=== PATIENT | female | born 1990 | race Caucasian/White ===

== ENCOUNTER 2022-05-18 08:27 | Emergency (ER) | payer SELFPAY ==
[2022-05-18 08:55] VITALS: BP 112/93; PULSE 82; RESP 20; TEMP 36.7; O2SAT 99; BMI 34.8
--- NOTE | 2022-05-18 09:11 | CRLHL7_ITS ---
For Patients: As a result of the Century Cures Act, medical imaging exams and procedure reports are released immediately into your electronic medical record. You may view this report before your referring provider. If you have questions, please contact your health care provider. INDICATION: SOB TECHNIQUE: Chest 1 view. COMPARISON: None. FINDINGS: Cardiovascular and mediastinum: Heart size and vasculature are normal in caliber and appearance. Mediastinum is within normal limits. Lungs and pleural space: Lungs are clear. No sign of infiltrate or mass. No sign of pleural effusion. No pneumothorax. Bones and soft tissues: No significant findings. IMPRESSION: Unremarkable chest. Dictated by: Saroj Riley MD @ 05/18/2022 10:47:40 (Electronically Signed)
[2022-05-18 09:37] LABS: Strep A DNA Probe* DETECTED (Not Detectd)
[2022-05-18] MEDS: KETOROLAC 30 MG/ML inj IVP (09:38)
[2022-05-18] MEDS: ONDANSETRON 2 MG/ML inj 4 MG IVP (09:38)
[2022-05-18] MEDS: 0.9 % SODIUM CHLORIDE 1000 ml 1,000 ML IV (09:38)
[2022-05-18 09:48] LABS: PCR FLU A Negative PCR FLU A (Negative); PCR FLU B Negative PCR FLU B (Negative); PCR RSV Negative PCR RSV (Negative)
--- NOTE | 2022-05-18 09:48 | ED.GENADULT ---
HPI - General Adult General Chief complaint: Chest Pain Stated complaint: coughing blood, chest pain Time Seen by Provider: 05/18/22 08:45 Source: patient Mode of arrival: ambulatory Limitations: no limitations History of Present Illness HPI narrative: 31-year-old female coming in today complaining of body aches, fevers, vomiting, cough, sore throat going on for 4 days. Patient states that she can not keep anything down. She denies any abdominal pain chest pain. No sick contacts that she is aware of. States that when she coughs it is sometimes productive with blood tinged sputum. Her significant other has influenza a. Related Data Previous Rx's Medication Instructions Recorded amoxicillin 500 mg capsule 500 mg PO BID 10 days #20 caps 05/18/22 Allergies Allergy/AdvReac Type Severity Reaction Status Date / Time shrimp Allergy Severe Anaphylaxis Verified 05/18/22 08:55 Review of Systems Status of ROS: Reports: 10 or more systems reviewed and unremarkable except as noted in History and below [facility] Social History Smoking Status: Never smoker Do you use any of these nicotine containing products: None Second hand tobacco smoke exposure: No How often do you have a drink containing alcohol: never How often do you have six or more drinks on one occasion: Never AUDIT-C Alcohol total score: 0 Non-prescribed substance use: denies use service: No Exam Narrative: Exam Narrative: Well-nourished well-developed patient. Alert and oriented. Patient writhing in pain and crying. Cooperative. Voice sounds normal. HEENT: Normocephalic atraumatic. Pupils are equally round reactive to light. Extraocular muscles are intact. Conjunctivae are moist without any icterus noted. Moist mucous membranes. Posterior pharynx is normal. Neck is soft without any lymphadenopathy or thyromegaly. No masses are appreciated. Cardiovascular: Heart is regular rate and rhythm S1 and S2 are present without any murmurs. Lungs: Clear to auscultation bilaterally no wheezes rhonchi or rales are appreciated. Patient takes deep breaths without any discomfort. Abdomen: Soft and nontender nondistended with normal bowel sounds. No guarding or rebound. No masses or organomegaly appreciated. Extremities: Bilateral lower extremities are without edema. Normal DP and PT pulses. Skin: Well perfused without any obvious rashes. Const: Vital Signs, click to edit/add: Vital Signs - 24 hr 05/18/22 08:55 Temperature 98.1 F Pulse Rate [Pulse Oximeter] 82 Respiratory Rate 20 Blood Pressure [Ri ght Upper Arm] 112/93 H Pulse Oximetry 99 Oxygen Delivery Me thod Room Air Course Course Hospital Course: Patient received normal saline, Zofran and Toradol for her aches, did feel better. Strep pharyngitis came back positive all other swabs including influenza and COVID were negative. Given her symptoms are very classic for influenza a and her significant other has influenza AI wonder if this is a false negative. Her chest x-ray, read by me, was clear. Vital Signs Vital signs: Initial Vital Signs Temperature 98.1 F 05/18/22 08:55 Temperature Source Temporal Artery Scan 05/18/22 08:55 Pulse Rate 82 05/18/22 08:55 Pulse Rhythm 05/18/22 08:55 Respiratory Rate 20 05/18/22 08:55 Blood Pressure 112/93 H 05/18/22 08:55 Blood Pressure Mean 99 05/18/22 08:55 Blood Pressure Position Supine 05/18/22 08:55 Pulse Oximetry 99 05/18/22 08:55 Oxygen Delivery Method 05/18/22 08:55 Vital Signs Temperature 98.1 F 05/18/22 08:55 Pulse Rate 82 05/18/22 08:55 Respiratory Rate 20 05/18/22 08:55 Blood Pressure 112/93 H 05/18/22 08:55 Pulse Oximetry 99 05/18/22 08:55 Oxygen Delivery Method 05/18/22 08:55 Temperature 98.1 F 05/18/22 08:55 Pulse Rate 82 05/18/22 08:55 Respiratory Rate 20 05/18/22 08:55 Blood Pressure 112/93 H 05/18/22 08:55 Pulse Oximetry 99 05/18/22 08:55 Oxygen Delivery Method 05/18/22 08:55 Medical Decision Making [facility] Narrative Medical decision making narrative: 31-year-old female coming in today with symptoms consistent with influenza. Influenza swab was negative however strep swab was positive. Given that she is on day 4 of her symptoms, Tamiflu would not be of too much help. We will go ahead and treat her with amoxicillin. Lab Data Lab results reviewed: Yes I reviewed the patient's lab results Labs: Lab Results 05/18/22 05/18/22 05/18/22 Range/Units 09:05 09:05 09:40 HCG, Qual Negative (Negative) SARS-CoV-2 (PCR) Negative SARS-CoV-2 (Negative) Influenza Type A (PCR) Negative PCR FLU A (Negative) Influenza Type B (PCR) Negative PCR FLU B (Negative) RSV (PCR) Negative PCR RSV (Negative) Group A Strep DNA DETECTED A (Not Detectd) Imaging Data Chest x-ray: Attestation: I have reviewed the pertinent imaging results. Radiologist's impression: Chest 1 view. COMPARISON: None. FINDINGS: Cardiovascular and mediastinum: Heart size and vasculature are normal in caliber and appearance. Mediastinum is within normal limits. Lungs and pleural space: Lungs are clear. No sign of infiltrate or mass. No sign of pleural effusion. No pneumothorax. Bones and soft tissues: No significant findings. IMPRESSION: Unremarkable chest. Discharge Plan Discharge Clinical Impression: Flu-like symptoms, Acute streptococcal pharyngitis Patient Disposition: Home, Self-Care Condition: Stable Additional Instructions: You likely have influenza. Stay well hydrated, use Tylenol or ibuprofen for aches and pains and fevers. You are contagious until you have not had a fever for 24 hours without any medications. Given that your strep test came back positive we will treat with amoxicillin today. Take all antibiotics as prescribed. Prescriptions: New amoxicillin 500 mg capsule 500 mg PO BID 10 Days Qty: 20 0RF Follow Up/Referrals: Provider,Not a Local [Primary Care Provider] - Stand Alone Forms: [employer] Info Instructions
[2022-05-18 09:50] LABS: SARS PCR* Negative SARS-CoV-2 (Negative)
[2022-05-18 10:06] LABS: HCG Qualitative* Negative (Negative)
== END 2022-05-18 11:37 | disposition home or self-care (01) ==
PROVIDERS: Emergency Provider Family Medicine
DX: J02.0 Streptococcal pharyngitis (principal)
CPT/HCPCS: 71045; 84703; 87502; 87634; 87635; 87651; 96374; 96375; 99284; J1885; J2405; J7030

== ENCOUNTER 2023-01-25 11:56 | Emergency (ER) | payer OTHER, SELFPAY ==
[2023-01-25 12:06] VITALS: BP 115/80; PULSE 73; RESP 18; TEMP 36.8; O2SAT 98; BMI 35.7
[2023-01-25 13:16] LABS: Ur HCG Qualitative* Negative (Negative)
--- NOTE | 2023-01-25 13:17 | ED_ITS ---
HPI - General Adult General Chief complaint: Vaginal Bleeding Stated complaint: Vaginal bleeding Time Seen by Provider: 01/25/23 13:13 Source: patient Mode of arrival: ambulatory Limitations: no limitations History of Present Illness HPI narrative: 32-year-old female coming in today complaining of irregular vaginal bleeding. She states that her period was 2 weeks late last month and then she had a 2nd. Two weeks afterwards. She had another. Two weeks after that. Periods are generally light when compared to her normal periods. She denies any abdominal discomfort, shortness of breath or dizziness. She is sexually active and is trying to get . She is not taking any control right now. She was on letrozole and that was stopped about 3 months ago. She states that she has been told she has polycystic ovaries but has never been diagnosed with polycystic ovarian syndrome. Related Data Home Medications Medication Instructions Recorded Confirmed No Known Home Medications 01/25/23 01/25/23 Allergies Allergy/AdvReac Type Severity Reaction Status Date / Time shrimp Allergy Severe Anaphylaxis Verified 01/25/23 12:10 Review of Systems Status of ROS: Reports: 10 or more systems reviewed and unremarkable except as noted in History and below [facility] Social History Smoking Status: Never smoker Do you use any of these nicotine containing products: None Second hand tobacco smoke exposure: No How often do you have a drink containing alcohol: never How often do you have six or more drinks on one occasion: Never AUDIT-C Alcohol total score: 0 Non-prescribed substance use: denies use service: No Exam Narrative: Exam Narrative: Well-nourished well-developed patient in no acute distress. Alert and oriented. Answers questions appropriately. Mood and affect are appropriate. Thoughts are goal oriented and rational. No tangential or magical thinking noted. Patie nt speaks in full sentences without needing to catch their breath. HEENT: Normocephalic atraumatic. Pupils are equally round reactive to light. Extraocular muscles are intact. Conjunctivae are moist without any icterus noted. Moist mucous membranes. Abdomen: Soft and nontender nondistended with normal bowel sounds. Extremities: Bilateral lower extremities are without edema. Skin: Well perfused without any obvious rashes. Const: Vital Signs, click to edit/add: Vital Signs - 24 hr 01/25/23 12:06 Temperature 98.2 F Pulse Rate [Pulse Oximeter] 73 Respiratory Rate 18 Blood Pressure [Ri ght Upper Arm] 115/80 Pulse Oximetry 98 Oxygen Delivery Me thod Room Air Course Course Hospital Course: CBC unremarkable showing very mild anemia with a hemoglobin of 11.7 and the test was negative. Vital Signs Vital signs: Initial Vital Signs Temperature 98.2 F 01/25/23 12:06 Temperature Source Temporal Artery Scan 01/25/23 12:06 Pulse Rate 73 01/25/23 12:06 Respiratory Rate 18 01/25/23 12:06 Blood Pressure 115/80 01/25/23 12:06 Blood Pressure Mean 91 01/25/23 12:06 Blood Pressure Position Sitting 01/25/23 12:06 Pulse Oximetry 98 01/25/23 12:06 Oxygen Delivery Method Room Air 01/25/23 12:06 Vital Signs Temperature 98.2 F 01/25/23 12:06 Pulse Rate 73 01/25/23 12:06 Respiratory Rate 18 01/25/23 12:06 Blood Pressure 115/80 01/25/23 12:06 Pulse Oximetry 98 01/25/23 12:06 Oxygen Delivery Method Room Air 01/25/23 12:06 Temperature 98.2 F 01/25/23 12:06 Pulse Rate 73 01/25/23 12:06 Respiratory Rate 18 01/25/23 12:06 Blood Pressure 115/80 01/25/23 12:06 Pulse Oximetry 98 01/25/23 12:06 Oxygen Delivery Method Room Air 01/25/23 12:06 Medical Decision Making MDM Narrative Medical decision making narrative: 32-year-old female with metrorrhagia. Patient encouraged to follow-up with OBGYN for further management. Lab Data Lab results reviewed: Yes I reviewed the patient's lab results Labs: Lab Results 01/25/23 01/25/23 Range/Units 13:05 13:15 WBC 10.98 (4.50-11.00) K/uL RBC 4.45 (4.00-5.20) m/uL Hgb 11.7 L (12.0-16.0) gm/dL Hct 36.3 (33.0-51.0) % MCV 82 (80-100) fL MCH 26 (26-34) pg MCHC 32 (32-36) gm/dL RDW Coeff of Horacio 13.8 (11.5-15.5) % Plt Count 399 (140-440) K/uL Neut % (Auto) 72.6 H (42.0-72.0) % Lymph % (Auto) 18.9 L (20-44) % [place] % (Auto) 6.4 (0.0-11.0) % Eos % (Auto) 1.7 (0.0-7.0) % Baso % (Auto) 0.3 (0.0-3.0) % Neut # (Auto) 8.00 H (1.7-7.0) K/uL Lymph # (Auto) 2.10 (0.90-2.90) K/uL [place] # (Auto) 0.70 (0.00-0.90) K/UL Eos # (Auto) 0.19 (0.00-0.50) K/uL Baso # (Auto) 0.03 (0.00-0.30) K/uL Abs Immat Gran (auto) 0.01 (0.00-0.30) K/uL Imm/Tot Granulo (auto) 0.1 % Urine HCG, Qual Negative (Negative) Discharge Plan Discharge Clinical Impression: Metrorrhagia Patient Disposition: Home, Self-Care Condition: Stable Additional Instructions: You should follow-up with your OBGYN provider or your primary care provider for further discussions and management of your irregular periods. Prescriptions: No Action No Known Home Medications Follow Up/Referrals: Provider,Not a Local [Primary Care Provider] - Stand Alone Forms: [employer] Info Instructions
[2023-01-25 13:23] LABS: Basophils Absolute Auto 0.03 K/uL (0.00-0.30); Basophils Percent Auto 0.3 % (0.0-3.0); Eosinophils Absolute Auto 0.19 K/uL (0.00-0.50); Eosinophils Percent Auto 1.7 % (0.0-7.0); Hematocrit 36.3 % (33.0-51.0); Hemoglobin* 11.7 gm/dL (12.0-16.0); Immature Granulocytes Abs Auto 0.01 K/uL (0.00-0.30); Immature Granulocytes Pct Auto 0.1 %; Lymphocytes Percent Auto 18.9 % (20-44); Mean Corpuscular HGB Conc 32 gm/dL (32-36); Mean Corpuscular Hemoglobin 26 pg (26-34); Mean Corpuscular Volume 82 fL (80-100); Monocytes Percent Auto 6.4 % (0.0-11.0); Neutrophils Percent Auto 72.6 % (42.0-72.0); Platelet Count* 399 K/uL (140-440); RDW Coefficient of Variation % 13.8 % (11.5-15.5); Red Blood Count 4.45 m/uL (4.00-5.20); White Blood Count* 10.98 K/uL (4.50-11.00)
[2023-01-25 13:25] LABS: Slide Review Reflex No
== END 2023-01-25 13:46 | disposition home or self-care (01) ==
LOC: ED 13:30
PROVIDERS: Emergency Provider Family Medicine
DX: N92.1 Excessive and frequent menstruation with irregular cycle (principal)
CPT/HCPCS: 36415; 81025; 85025; 99283; 99284

== ENCOUNTER 2023-02-27 08:08 | Emergency (ER) | payer OTHER, SELFPAY ==
[2023-02-27 08:14] VITALS: BP 96/77; PULSE 99; RESP 18; TEMP 36.1; O2SAT 98; BMI 32.9
--- NOTE | 2023-02-27 08:33 | CRLHL7_ITS ---
For Patients: As a result of the Century Cures Act, medical imaging exams and procedure reports are released immediately into your electronic medical record. You may view this report before your referring provider. If you have questions, please contact your health care provider. Indication: Shortness of breath Technique: Chest 1 view Comparison: Chest x-ray 05/18/2022 Findings/Impression: Cardiovascular and mediastinum: Heart size and vasculature are normal in caliber and appearance. Lungs and pleural space: Lungs are clear. No sign of infiltrate or mass. No sign of pleural effusion. No pneumothorax. Bones and soft tissues: No acute findings. Dictated by Mack Crowe MD @ 02/27/2023 8:56:53 AM (Electronically Signed)
--- NOTE | 2023-02-27 08:36 | ED_ITS ---
HPI - General Adult General Date Seen: 02/27/23 Chief complaint: Cough Stated complaint: headaches,night sweats,vomiting,cough Time Seen by Provider: 02/27/23 08:10 Source: patient Mode of arrival: ambulatory Limitations: no limitations History of Present Illness HPI narrative: Patient is a 32-year-old here saying she has not felt well for the past couple of days. She has had a cough, she has had some post-tussive emesis with some streaks of blood, she has had night sweats and presumes that she has had a fever because of the night sweats. She has felt wheezy and sometimes short of breath, no chest pain. No ill contacts. She says she was diagnosed with asthma in [place] but has never had an inhaler. Related Data Previous Rx's Medication Instructions Recorded albuterol sulfate 90 mcg/actuation 2 puff inhalation 6XD PRN 02/27/23 aerosol inhaler shortness of breath or wheezing #6.7 grams Allergies Allergy/AdvReac Type Severity Reaction Status Date / Time shrimp Allergy Severe Anaphylaxis Verified 01/25/23 12:10 Review of Systems Status of ROS: Reports: 6 or more systems reviewed and unremarkable except as noted in History and below [facility] Social History Smoking Status: Never smoker Do you use any of these nicotine containing products: None Second hand tobacco smoke exposure: No How often do you have a drink containing alcohol: never How often do you have six or more drinks on one occasion: Never AUDIT-C Alcohol total score: 0 Non-prescribed substance use: denies use service: No Exam Narrative: Exam Narrative: Vital signs as noted above. In general, an alert, well-appearing patient. Head: Normocephalic, atraumatic. Eyes: Pupils are equal reactive. Extraocular movements are full. Conjunctivae are normal. ENT: Mucous membranes are moist. Tonsils are normal, no exudate or edema. She does have a few streaks of blood noted in the back of her throat. Neck: Supple without lymphadenopathy. Heart: Regular rate and rhythm. No murmur or rub. Lungs: No wheezes but she does have a few crackles in bilateral upper lungs. No increased work of breathing. Abdomen: Soft and nontender. No organomegaly. Extremities: Well perfused. No edema. No calf tenderness. Pulses intact. Neurologic: Patient is alert and oriented to person and place. Speech is fluent. Face is symmetric. Moves all extremities equally. Affect: Normal. Skin: Warm and dry. Well perfused. Const: Vital Signs, click to edit/add: Vital Signs - 24 hr 02/27/23 08:14 Temperature 96.9 F L Pulse Rate [Pulse Oximeter] 99 Respiratory Rate 18 Blood Pressure [Ri ght Forearm] 96/77 Pulse Oximetry 98 Oxygen Delivery Me thod Room Air Course Course ED Course: I did a chest x-ray here which by my review is negative, final radiology read is negative. Labs show hemoglobin of 11.5, white count is normal at 6.3 with a neutrophil count of 35%, increased lymphocyte % of 47%. Metabolic panel unremarkable. CRP minimally elevated at 1.6. COVID is positive. Reviewed with her that I think the blood streaks are likely due to a Jennifer-Garza tear, also could be due to some bleeding in the nasal passages are back of the throat. I am not overly concerned about that. Overall, symptoms I think are due to COVID, she is not showing any signs of significant respiratory difficulty. I think she can be treated symptomatically. I am going to give her an inhaler since she feels she does have a history of some reactive airways. She can use this as needed. Return for worsening respiratory symptoms. Reviewed that for right now O2 sats are normal. Vital Signs Vital signs: Initial Vital Signs Temperature 96.9 F L 02/27/23 08:14 Temperature Source Temporal Artery Scan 02/27/23 08:14 Pulse Rate 99 02/27/23 08:14 Respiratory Rate 18 02/27/23 08:14 Blood Pressure 96/77 02/27/23 08:14 Blood Pressure Mean 83 02/27/23 08:14 Blood Pressure Position Sitting 02/27/23 08:14 Pulse Oximetry 98 02/27/23 08:14 Oxygen Delivery Method Room Air 02/27/23 08:14 Vital Signs Temperature 96.9 F L 02/27/23 08:14 Pulse Rate 99 02/27/23 08:14 Respiratory Rate 18 02/27/23 08:14 Blood Pressure 96/77 02/27/23 08:14 Pulse Oximetry 98 02/27/23 08:14 Oxygen Delivery Method Room Air 02/27/23 08:14 Temperature 96.9 F L 02/27/23 08:14 Pulse Rate 99 02/27/23 08:14 Respiratory Rate 18 02/27/23 08:14 Blood Pressure 96/77 02/27/23 08:14 Pulse Oximetry 98 02/27/23 08:14 Oxygen Delivery Method Room Air 02/27/23 08:14 Medical Decision Making Lab Data Labs: Lab Results 02/27/23 02/27/23 Range/Units 08:24 08:50 WBC 6.30 (4.50-11.00) K/uL RBC 4.39 (4.00-5.20) m/uL Hgb 11.5 L (12.0-16.0) gm/dL Hct 35.4 (33.0-51.0) % MCV 81 (80-100) fL MCH 26 (26-34) pg MCHC 33 (32-36) gm/dL RDW Coeff of Horacio 14.3 (11.5-15.5) % Plt Count 352 (140-440) K/uL Neut % (Auto) 35.3 L (42.0-72.0) % Lymph % (Auto) 47.0 H (20-44) % Bartholomew % (Auto) 13.7 H (0.0-11.0) % Eos % (Auto) 3.2 (0.0-7.0) % Baso % (Auto) 0.6 (0.0-3.0) % Neut # (Auto) 2.20 (1.7-7.0) K/uL Lymph # (Auto) 3.00 H (0.90-2.90) K/uL Bartholomew # (Auto) 0.90 (0.00-0.90) K/UL Eos # (Auto) 0.20 (0.00-0.50) K/uL Baso # (Auto) 0.04 (0.00-0.30) K/uL Abs Immat Gran (auto) 0.01 (0.00-0.30) K/uL Imm/Tot Granulo (auto) 0.2 % Sodium 139 (135-149) mmol/L Potassium 3.4 L (3.6-5.1) mmol/L Chloride 106 (96-114) mmol/L Carbon Dioxide 23 (20-32) mmol/L Anion Gap 10 (7-15) mEq/L BUN 15 (5-24) mg/dL Creatinine 0.6 (0.5-1.5) mg/dL Estimated Creat Clear 107.45 Estimated GFR 123 ml/min Glucose 100 (60-115) mg/dL Calcium 9.4 (8.4-10.6) mg/dL C-Reactive Protein 1.6 H (0.5-1.0) mg/dL SARS-CoV-2 (PCR) POSITIVE SARS-CoV-2 A (Negative) Influenza Type A (PCR) Negative PCR FLU A (Negative) Influenza Type B (PCR) Negative PCR FLU B (Negative) RSV (PCR) Negative PCR RSV (Negative) Discharge Plan Discharge Clinical Impression: COVID-19 Patient Disposition: Home, Self-Care Condition: Stable Instructions: COVID-19 (Coronavirus Disease 2019) (ED) Additional Instructions: Ibuprofen or Tylenol as needed. I do not hear any wheezing today, but I will prescribe an inhaler in case you feel like you need it. Symptoms will likely take 7-10 days to fully improve. If you feel like your breathing is worsening significantly, return to the emergency department. You can buy an oxygen sensor at the drugstore if you would like to keep an eye on your oxygen levels at home. If they are consistently below 90% you should be seen again. Prescriptions: New albuterol sulfate 90 mcg/actuation HFA aerosol inhaler 2 puff inhalation 6XD PRN (Reason: shortness of breath or wheezing) Qty: 6.7 0RF Follow Up/Referrals: Provider,Not a Local [Primary Care Provider] - Stand Alone Forms: [employer] Info Instructions
[2023-02-27 08:58] LABS: Basophils Absolute Auto 0.04 K/uL (0.00-0.30); Basophils Percent Auto 0.6 % (0.0-3.0); Eosinophils Percent Auto 3.2 % (0.0-7.0); Hematocrit 35.4 % (33.0-51.0); Hemoglobin* 11.5 gm/dL (12.0-16.0); Immature Granulocytes Abs Auto 0.01 K/uL (0.00-0.30); Immature Granulocytes Pct Auto 0.2 %; Mean Corpuscular HGB Conc 33 gm/dL (32-36); Mean Corpuscular Hemoglobin 26 pg (26-34); Mean Corpuscular Volume 81 fL (80-100); Monocytes Percent Auto 13.7 % (0.0-11.0); Neutrophils Percent Auto 35.3 % (42.0-72.0); Platelet Count* 352 K/uL (140-440); RDW Coefficient of Variation % 14.3 % (11.5-15.5); Red Blood Count 4.39 m/uL (4.00-5.20)
[2023-02-27 08:59] LABS: Slide Review Reflex No
[2023-02-27 09:12] LABS: PCR FLU A Negative PCR FLU A (Negative); PCR FLU B Negative PCR FLU B (Negative); PCR RSV Negative PCR RSV (Negative)
[2023-02-27 09:19] LABS: Chloride* 106 mmol/L (96-114)
[2023-02-27 09:20] LABS: Potassium* 3.4 mmol/L (3.6-5.1); Sodium* 139 mmol/L (135-149)
[2023-02-27 09:20] LABS: SARS PCR* POSITIVE SARS-CoV-2 (Negative)
[2023-02-27 09:22] LABS: Creatinine* 0.6 mg/dL (0.5-1.5); Est. Creatinine Clearance* 107.45; Estimated Glomerular Filt Rate 123 ml/min
[2023-02-27 09:23] LABS: Anion Gap 10 mEq/L (7-15); Blood Urea Nitrogen* 15 mg/dL (5-24); Carbon Dioxide* 23 mmol/L (20-32); Glucose* 100 mg/dL (60-115)
[2023-02-27 09:24] LABS: Calcium* 9.4 mg/dL (8.4-10.6)
[2023-02-27 09:26] LABS: C Reactive Protein* 1.6 mg/dL (0.5-1.0)
== END 2023-02-27 10:37 | disposition home or self-care (01) ==
PROVIDERS: Emergency Provider Emergency Medicine
DX: U07.1 COVID-19 (principal)
CPT/HCPCS: 36415; 71045; 80048; 85025; 86140; 87631; 99284

== ENCOUNTER 2023-07-02 16:40 | Emergency (ER) | payer OTHER, SELFPAY ==
[2023-07-02 16:43] VITALS: BP 123/56; PULSE 75; RESP 18; TEMP 37.2; O2SAT 99; BMI 34.0
[2023-07-02 17:20] LABS: Appearance Urine Clear (Clear); Bilirubin Urine Negative (Negative); Blood Urine Trace-lysed (Negative); Color Urine Yellow (Yellow); Glucose Urine Negative (Negative); Ketones Urine Negative (Negative); Leukocyte Esterase Urine Negative (Negative); Nitrite Urine Negative (Negative); Protein Urine Negative (Negative); Urobilinogen Urine 0.2 (0.2-1.0)
[2023-07-02 17:25] LABS: Basophils Absolute Auto 0.02 K/uL (0.00-0.30); Basophils Percent Auto 0.2 % (0.0-3.0); Eosinophils Percent Auto 2.2 % (0.0-7.0); Hemoglobin* 10.6 gm/dL (12.0-16.0); Immature Granulocytes Abs Auto 0.01 K/uL (0.00-0.30); Immature Granulocytes Pct Auto 0.1 %; Lymphocytes Absolute Auto 2.98 K/uL (0.90-2.90); Lymphocytes Percent Auto 32.7 % (20-44); Mean Corpuscular HGB Conc 32 gm/dL (32-36); Mean Corpuscular Hemoglobin 27 pg (26-34); Mean Corpuscular Volume 84 fL (80-100); Neutrophils Absolute Auto 5.26 K/uL (1.7-7.0); Neutrophils Percent Auto 57.8 % (42.0-72.0); Platelet Count* 364 K/uL (140-440); RDW Coefficient of Variation % 13.6 % (11.5-15.5); Red Blood Count 3.93 m/uL (4.00-5.20); White Blood Count* 9.11 K/uL (4.50-11.00)
[2023-07-02 17:29] LABS: Bacteria Urine Few; Squamous Epithelial Cell Urine Few (None-Few); Ur HCG Qualitative* Negative (Negative); WBC Urine 0-2 (0-5)
[2023-07-02 17:30] LABS: Slide Review Reflex No
[2023-07-02] MEDS: hydrOXYzine pamoate 25 MG CAPSULE PO (17:39)
[2023-07-02 17:40] LABS: Albumin* 4.4 g/dL (3.3-5.0); Chloride* 106 mmol/L (96-114); Sodium* 140 mmol/L (135-149)
[2023-07-02 17:41] LABS: Potassium* 3.9 mmol/L (3.6-5.1)
[2023-07-02 17:43] LABS: Alanine Aminotransferase* 20 U/L (4-35); Alkaline Phosphatase* 71 U/L (40-150); Anion Gap 10 mEq/L (7-15); Aspartate Amino Transferase* 24 U/L (12-35); Bilirubin Direct* 0.1 mg/dL (0.0-0.5); Bilirubin Total* 0.2 mg/dL (0.1-1.5); Blood Urea Nitrogen* 25 mg/dL (5-24); Carbon Dioxide* 24 mmol/L (20-32); Creatinine* 0.5 mg/dL (0.5-1.5); Est. Creatinine Clearance* 123.02; Estimated Glomerular Filt Rate 129 ml/min; Glucose* 103 mg/dL (60-115); Total Protein* 7.4 g/dL (6.0-8.3)
[2023-07-02 17:44] LABS: Calcium* 8.8 mg/dL (8.4-10.6)
--- NOTE | 2023-07-02 18:31 | ED.GENADULT ---
HPI - General Adult General Chief complaint: Unspecified Complaint, Adult Stated complaint: Itchy all over, face and hands, lethargic Time Seen by Provider: 07/02/23 16:51 Source: patient Mode of arrival: ambulatory Limitations: no limitations History of Present Illness HPI narrative: Patient is a 32-year-old female coming in today with several concerns. Patient states that for the last couple of months she has had increased hair loss, increased fatigue, increased sleep, weight gain up to 100 lb over the last 6 months, itchy skin, and muscle aches. These things wax and wane as the weeks have gone by. Her biggest concern today is that her skin is very itchy. When she starts to scratch her skin she notices that she gets welts. The most uncomfortable parts are her face, neck and shoulders. The muscle achiness is located mainly in her arms. She also has numbness and tingling of hands and feet. She denies any fevers or chills. No vomiting. She states that she is not . She has had 2 C sections in the past. She does not take any regular medications. She has an appointment to see her doctor tomorrow. Related Data Previous Rx's Medication Instructions Recorded albuterol sulfate 90 mcg/actuation 2 puff inhalation 6XD PRN 02/27/23 aerosol inhaler shortness of breath or wheezing #6.7 grams Allergies Allergy/AdvReac Type Severity Reaction Status Date / Time shrimp Allergy Severe Anaphylaxis Verified 07/02/23 16:49 Review of Systems Status of ROS: Reports: 10 or more systems reviewed and unremarkable except as noted in History and below PFSH PFS Social History Smoking Status: Never smoker Do you use any of these nicotine containing products: None Second hand tobacco smoke exposure: No How often do you have a drink containing alcohol: never How often do you have six or more drinks on one occasion: Never AUDIT-C Alcohol total score: 0 Non-prescribed substance use: denies use service: No Exam Narrative: Exam Narrative: Overweight,well-developed patient in no acute distress. Alert and oriented. Answers questions appropriately. Mood and affect are appropriate. Thoughts are goal oriented and rational. No tangential or magical thinking noted. Patient speaks in full sentences without needing to catch her breath. HEENT: Normocephalic atraumatic. Pupils are equally round reactive to light. Extraocular muscles are intact. Conjunctivae are moist without any icterus noted. Moist mucous membranes. Posterior pharynx is normal. Neck is soft without any lymphadenopathy or thyromegaly. No masses are appreciated. Cardiovascular: Heart is regular rate and rhythm S1 and S2 are present without any murmurs. Lungs: Clear to auscultation bilaterally no wheezes rhonchi or rales are appreciated. Patient takes deep breaths without any discomfort. Abdomen: Soft and nontender nondistended with normal bowel sounds. Extremities: Bilateral lower extremities are without edema. Normal DP and PT pulses. Skin: Well perfused without any obvious rashes. she has some mild excoriations of her cheeks bilaterally, skin is irritated and raised on both cheeks and across the collar bones, and On the neck. Const: Vital Signs, click to edit/add: Vital Signs - 24 hr 07/02/23 16:43 Temperature 99.0 F Pulse Rate [Pulse Oximeter] 75 Respiratory Rate 18 Blood Pressure [Ri ght Upper Arm] 123/56 L Pulse Oximetry 99 Oxygen Delivery Me thod Room Air Course Course ED Course: patient tells me that she already took Benadryl before presenting so in the ER she received 1 dose of hydroxyzine. This helped her symptoms quite a bit. Blood work including a CBC, chemistries, LFTs, thyroid were unremarkable aside from mild anemia with a hemoglobin of 10.6. UA unremarkable. Vital Signs Vital signs: Initial Vital Signs Temperature 99.0 F 07/02/23 16:43 Temperature Source Temporal Artery Scan 07/02/23 16:43 Pulse Rate 75 07/02/23 16:43 Respiratory Rate 18 07/02/23 16:43 Blood Pressure 123/56 L 07/02/23 16:43 Blood Pressure Mean 78 07/02/23 16:43 Blood Pressure Position Sitting 07/02/23 16:43 Pulse Oximetry 99 07/02/23 16:43 Oxygen Delivery Method Room Air 07/02/23 16:43 Vital Signs Temperature 99.0 F 07/02/23 16:43 Pulse Rate 75 07/02/23 16:43 Respiratory Rate 18 07/02/23 16:43 Blood Pressure 123/56 L 07/02/23 16:43 Pulse Oximetry 99 07/02/23 16:43 Oxygen Delivery Method Room Air 07/02/23 16:43 Temperature 99.0 F 07/02/23 16:43 Pulse Rate 75 07/02/23 16:43 Respiratory Rate 18 07/02/23 16:43 Blood Pressure 123/56 L 07/02/23 16:43 Pulse Oximetry 99 07/02/23 16:43 Oxygen Delivery Method Room Air 07/02/23 16:43 Medications Administered Medications: Discontinued Medications Generic Name Dose Route Start Last Admin Trade Name Mine PRN Reason Stop Dose Admin Hydroxyzine Pamoate 25 mg 07/02/23 17:34 07/02/23 17:39 Hydroxyzine Pamoate 25 Mg Capsule PO 07/02/23 17:35 25 mg ONCE ONE Administration Medical Decision Making MDM Narrative Medical decision making narrative: 32-year-old female with multiple concerns today. I recommend she follow up with her primary care provider. We discussed that our workup in the emergency department is limited to life-threatening things and I do not think that her symptoms represent a life-threatening condition at this time. Patient was understanding of this and had no other questions. Lab Data Lab results reviewed: Yes I reviewed the patient's lab results Labs: Lab Results 07/02/23 07/02/23 Range/Units 16:51 17:17 WBC 9.11 (4.50-11.00) K/uL RBC 3.93 L (4.00-5.20) m/uL Hgb 10.6 L (12.0-16.0) gm/dL Hct 33.0 (33.0-51.0) % MCV 84 (80-100) fL MCH 27 (26-34) pg MCHC 32 (32-36) gm/dL RDW Coeff of Horacio 13.6 (11.5-15.5) % Plt Count 364 (140-440) K/uL Neut % (Auto) 57.8 (42.0-72.0) % Lymph % (Auto) 32.7 (20-44) % Cocke % (Auto) 7.0 (0.0-11.0) % Eos % (Auto) 2.2 (0.0-7.0) % Baso % (Auto) 0.2 (0.0-3.0) % Neut # (Auto) 5.26 (1.7-7.0) K/uL Lymph # (Auto) 2.98 H (0.90-2.90) K/uL Cocke # (Auto) 0.60 (0.00-0.90) K/UL Eos # (Auto) 0.20 (0.00-0.50) K/uL Baso # (Auto) 0.02 (0.00-0.30) K/uL Abs Immat Gran (auto) 0.01 (0.00-0.30) K/uL Imm/Tot Granulo (auto) 0.1 % Diff Slide Review Not Reportable Sodium 140 (135-149) mmol/L Potassium 3.9 (3.6-5.1) mmol/L Chloride 106 (96-114) mmol/L Carbon Dioxide 24 (20-32) mmol/L Anion Gap 10 (7-15) mEq/L BUN 25 H (5-24) mg/dL Creatinine 0.5 (0.5-1.5) mg/dL Estimated Creat Clear 123.02 Estimated GFR 129 ml/min Glucose 103 (60-115) mg/dL Calcium 8.8 (8.4-10.6) mg/dL Total Bilirubin 0.2 (0.1-1.5) mg/dL Direct Bilirubin 0.1 (0.0-0.5) mg/dL AST 24 (12-35) U/L ALT 20 (4-35) U/L Alkaline Phosphatase 71 (40-150) U/L Total Protein 7.4 (6.0-8.3) g/dL Albumin 4.4 (3.3-5.0) g/dL TSH 1.150 (0.270-4.20) uIU/mL Urine Color Yellow (Yellow) Urine Appearance Clear (Clear) Urine pH 8.0 (5.0-8.5) Ur Specific Wendell 1.020 (1.000-1.030) Urine Protein Negative (Negative) Urine Glucose (UA) Negative (Negative) Urine Ketones Negative (Negative) Urine Blood Trace-lysed A (Negative) Urine Nitrite Negative (Negative) Urine Bilirubin Negative (Negative) Urine Urobilinogen 0.2 (0.2-1.0) Ur Leukocyte Esterase Negative (Negative) Urine RBC 2-5 A (0-2) Urine WBC 0-2 (0-5) Ur Squamous Epith Cells Few (None-Few) Urine Bacteria Few A (None) Urine HCG, Qual Negative (Negative) Discharge Plan Discharge Clinical Impression: Fatigue, Abnormal weight gain, Pruritus, Hair loss Patient Disposition: Home, Self-Care Condition: Stable Additional Instructions: Follow-up with your primary care doctor as scheduled. In the meantime I will send you home with some hydroxyzine -take these for itching. They will make you sleepy so be careful when you take them. You can also purchase [id number] Cortisone-10 and use that on your cheeks and neck when you are itchy. Do not use for more than 4 days in a row. Medications sent to [facility]. Prescriptions: No Action albuterol sulfate 90 mcg/actuation HFA aerosol inhaler 2 puff inhalation 6XD PRN (Reason: shortness of breath or wheezing) Qty: 6.7 0RF Follow Up/Referrals: Provider,Not a Local [Primary Care Provider] - Stand Alone Forms: [employer] Info Instructions
== END 2023-07-02 18:59 | disposition home or self-care (01) ==
PROVIDERS: Emergency Provider Family Medicine
DX: L29.9 Pruritus, unspecified (principal); R53.83 Other fatigue; R63.5 Abnormal weight gain
CPT/HCPCS: 36415; 80048; 80076; 81001; 81025; 84443; 85025; 87086; 99284; A9270

== ENCOUNTER 2023-08-23 15:33 | Emergency (ER) | payer OTHER, SELFPAY ==
--- NOTE | 2023-08-23 15:36 | ED.GENADULT ---
HPI - General Adult General Date Seen: 08/23/23 Chief complaint: Abdominal Pain Stated complaint: Stomach pain, heartburn, diarrhea/nausea Time Seen by Provider: 08/23/23 15:36 History of Present Illness HPI narrative: 32-year-old female with a past medical history of asthma, 2 previous C-sections, shrimp allergy, who presents to the ER today, accompanied by her boyfriend, for evaluation of diarrhea, abdominal pain, heartburn, and nausea. She does note that she has some long-term trouble with her digestive symptoms. She does not have a formal diagnosis for that yet. She has never had any other previous abdominal surgeries other than C-sections. She still has appendix, gallbladder. She became ill yesterday evening after eating [place] food. She thinks she is probably having food poisoning. She was feeling healthy yesterday. At around midnight last night she became sick with diarrhea. She has had several loose watery stools let overnight and a couple more today. She has been nauseous and having heartburn but not vomiting. No fevers. No bloody or black stool. No mucousy stool. She is having some abdominal cramping, predominantly in the upper abdomen, and more on the left than on right. 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 She called in sick to her job but her employer insisted that she get a work note so she came here to the ER. She was mostly received in the ER on July 02 with concerns for weight gain, fatigue, hair loss, sleepiness, body aches, skin itching. Labs from 07/02: WBC 9.1, hemoglobin 10.6, platelet 364 Sodium 140, potassium 3.9, chloride 106, bicarb 24, BUN 25, creatinine 0.5, glucose 103 Bilirubin 0.2, AST 24, ALT 20, alk-phos 71, albumin 4.4 TSH 1.15-normal test negative UA normal save for 2-5 RBC/HPF Related Data Previous Rx's Medication Instructions Recorded albuterol sulfate 90 mcg/actuation 2 puff inhalation 6XD PRN 02/27/23 aerosol inhaler shortness of breath or wheezing #6.7 grams loperamide 2 mg tablet (Imodium 2 mg PO Q4H PRN loose stool #10 08/23/23 A-D) tabs ondansetron HCl 4 mg tablet 4 mg PO Q8H #10 tabs 08/23/23 Allergies Allergy/AdvReac Type Severity Reaction Status Date / Time shrimp Allergy Severe Anaphylaxis Verified 07/02/23 16:49 [facility] Social History Smoking Status: Never smoker Do you use any of these nicotine containing products: None Second hand tobacco smoke exposure: No How often do you have a drink containing alcohol: never How often do you have six or more drinks on one occasion: Never AUDIT-C Alcohol total score: 0 Non-prescribed substance use: denies use service: No Exam Narrative: Exam Narrative: Constitutional: Appears well-developed and well-nourished. Alert. Conversant. Accompanied by her boyfriend. They interact pleasantly together. Non toxic. HENT: Head: Atraumatic. Nose: Nose normal. Mouth/Throat: Oral mucosa is clear and moist. no trismus. Pharynx normal. Eyes: Conjunctivae normal. EOM normal. Pupils equal, round, and reactive to light. No scleral icterus. Neck: Normal range of motion. Neck supple. No tracheal deviation present. Cardiovascular: Normal rate, regular rhythm. No gallop. No friction rub. No murmur heard. Symmetric radial artery pulses Pulmonary/Chest: Effort normal. No stridor. No respiratory distress. No wheezes. No rales. No rhonchi . No tenderness. Abdominal: Soft. Bowel sounds normal. No distension. No mass. Epigastric and left upper quadrant> right lower quadrant tenderness. No rebound. No guarding. No Haley sign. No HSM. No CVA tenderness. Musculoskeletal: RUE: Normal range of motion. No tenderness. No deformity LUE: Normal range of motion. No tenderness. No deformity RLE: Normal range of motion. No edema. No tenderness. No deformity LLE: Normal range of motion. No edema. No tenderness. No deformity Neurological: Alert and oriented to person, place, and time. Normal strength. CN II-VII intact. No sensory deficit. GCS eye subscore is 4. GCS verbal subscore is 5. GCS motor subscore is 6. Normal coordination Skin: Skin is warm and dry. No rash noted. No pallor. Normal capillary refill. Psychiatric: Normal mood. Normal affect. Const: Vital Signs, click to edit/add: Vital Signs - 24 hr 08/23/23 15:42 Temperature 97.2 F L Pulse Rate [Left P ulse Oximeter] 73 Respiratory Rate 16 Blood Pressure [Le ft Upper Arm] 127/87 Pulse Oximetry 98 Oxygen Delivery Me thod Room Air Course Vital Signs Vital signs: Initial Vital Signs Temperature 97.2 F L 08/23/23 15:42 Temperature Source Temporal Artery Scan 08/23/23 15:42 Pulse Rate 73 08/23/23 15:42 Pulse Rhythm Regular 08/23/23 15:42 Pulse Strength 3+ Normal 08/23/23 15:42 Respiratory Rate 16 08/23/23 15:42 Blood Pressure 127/87 08/23/23 15:42 Blood Pressure Mean 100 08/23/23 15:42 Blood Pressure Position Sitting 08/23/23 15:42 Pulse Oximetry 98 08/23/23 15:42 Oxygen Delivery Method Room Air 08/23/23 15:42 Vital Signs Temperature 97.2 F L 08/23/23 15:42 Pulse Rate 73 08/23/23 15:42 Respiratory Rate 16 08/23/23 15:42 Blood Pressure 127/87 08/23/23 15:42 Pulse Oximetry 98 08/23/23 15:42 Oxygen Delivery Method Room Air 08/23/23 15:42 Temperature 97.2 F L 08/23/23 15:42 Pulse Rate 73 08/23/23 15:42 Respiratory Rate 16 08/23/23 15:42 Blood Pressure 127/87 08/23/23 15:42 Pulse Oximetry 98 08/23/23 15:42 Oxygen Delivery Method Room Air 08/23/23 15:42 Medical Decision Making [facility] Narrative Medical decision making narrative: This patient presents with heartburn, nausea and diarrhea that began last night. They should patient believe she probably has ?food poisoning? from eating at a [place] restaurant. She wanted to stay home to rest today but her employer insisted that she come to the ER to be checked out. The patient's symptoms and exam could be consistent with a viral GI infection. There is no high fever, severe pain, bilious or bloody emesis, blood or mucous in the stool, severe abdominal pain, or other concerning signs for a bacterial infection. No recent travel or high risk exposure for baceraial pathogen. No recent antibiotics or risk factors for C. diff. Although the patient believes she has food poisoning, I did consider a broad differential for her symptoms; such as Appendicitis, Bowel Obstruction, Ulcer, Ischemia, Cholecystitis, Diverticulitis, Pancreatitis, UTI, kidney stone, Enteritis/Colitis, amongst many other etiologies. Patient prefers not to have any further workup, including no labs today. At this point abdominal exam is mildly tender but not peritoneal. Overall reassuring. I don't see any see convincing evidence for appendicitis, bowel obstruction, abscess, bowel perforation, or other surgical emergency. Therefore we will pursue a course of watchful waiting. At this point, the patient is non-septic appearing and well hydrated. I think the patient can be managed as an outpatient. We have discussed oral rehydration strategies. They understand and can perform the needed interventions at home. I have provided a prescription for antiemetics to facilitate oral hydration (zofran and imodium). We have discussed the signs and symptoms of worsening dehydration. They understand the need for immediate reevaluation if any of these symptoms occur. They are also directed to obtain close ED or outpatient follow up within 2 days. Discharge Plan Discharge Clinical Impression: Diarrhea, Nausea Patient Disposition: Home, Self-Care Condition: Stable Instructions: Acute Nausea and Vomiting (ED), Acute Diarrhea (ED), Acute Abdominal Pain (DC) Additional Instructions: As we discussed, please come back to the ER right away if you have any worsening symptoms-such as worsening pain, fever, blood in your vomit or stool, weakness, or dehydration. If you are not completely improved within 36 hours, return to the ER or see your doctor for a recheck. Stay home from work until you are feeling better. Be sure to wash your hands and do not spread your germs to other people Prescriptions: New ondansetron HCl 4 mg tablet 4 mg PO Q8H Qty: 10 0RF loperamide [Imodium A-D] 2 mg tablet 2 mg PO Q4H PRN (Reason: loose stool) Qty: 10 0RF Rx Instructions: administer after each loose stool until symptoms controlled; do not exceed 8 mg per 24 hrs No Action albuterol sulfate 90 mcg/actuation HFA aerosol inhaler 2 puff inhalation 6XD PRN (Reason: shortness of breath or wheezing) Qty: 6.7 0RF Follow Up/Referrals: Provider,Not a Local [Primary Care Provider] - Stand Alone Forms: [employer] Info Instructions
[2023-08-23 15:42] VITALS: BP 127/87; PULSE 73; RESP 16; TEMP 36.2; O2SAT 98; BMI 34.0
[2023-08-23] MEDS: LOPERAMIDE HCL 2 MG CAPSULE 4 MG PO (16:28)
[2023-08-23] MEDS: ONDANSETRON ODT 4 MG TAB PO (16:28)
== END 2023-08-23 16:39 | disposition home or self-care (01) ==
PROVIDERS: Emergency Provider Emergency Medicine
DX: R11.2 Nausea with vomiting, unspecified (principal); R19.7 Diarrhea, unspecified
CPT/HCPCS: 99282; 99283; A9270

== ENCOUNTER 2025-04-24 04:19 | Emergency (ER) | payer OTHER, SELFPAY ==
--- NOTE | 2025-04-24 04:21 | ED_ITS ---
HPI - General Adult General Time Seen by Provider: 04:22 Date Seen: 04/24/25 Chief complaint: Abdominal Pain Stated complaint: abdominal pain Time Seen by Provider: 04/24/25 04:21 Source: patient Mode of arrival: ambulatory Limitations: no limitations History of Present Illness HPI narrative: 34y/o female who presents today with right upper quadrant abdominal pain s tarting about an hour prior to coming the emergency department. Did vomit twice. Hurts to breathe. Denies fevers or chills, denies possibility of , no prior surgeries. No cough. Related Data Home Medications ?Medication ?Instructions ?Recorded ?Confirmed escitalopram oxalate 10 mg tablet 10 mg PO QAM 4 01/21/24 Previous Rx's ?Medication ?Instructions ?Recorded albuterol sulfate 90 mcg/actuation 2 puff inhalation 6 XD PRN 02/27/23 aerosol inhaler shortness of breath or wheez ing #6.7 grams Allergies Allergy/AdvReac Type Severity Reaction Status Date / Time shrimp Allergy Severe Anaphylaxis Verified 04/24/25 04:31 [facility] Social History Smoking Status: Never smoker Do you use any of these nicotine containing products: None Second hand tobacco smoke exposure: No How often do you have a drink containing alcohol: never How often do you have six or more drinks on one occasion: Never AUDIT-C Alcohol total score: 0 Non-prescribed substance use: denies use service: No Exam Narrative: Exam Narrative: General: Well-developed and well-nourished, anxious appearing and tearful Head: Atraumatic and normocephalic Eyes: Pupils are equal reactive, extraocular motions intact, conjunctiva clear ENT: External nose and ears are normal, posterior pharynx without erythema or exudate Neck: No midline cervical tenderness, full spontaneous range of motion the neck, trachea midline, no adenopathy Heart: Regular rate and rhythm no murmurs or thrills Lungs: Clear to auscultation bilaterally without wheezes or crackles Abdomen: Soft, right upper quadrant tenderness, nondistended with active bowel sounds Musculoskeletal: No tenderness, deformity, or edema Neurologic: Awake, alert, and oriented x3, no gross focal neurologic deficits, cranial nerves intact as tested Psych: Mood and affect are appropriate Skin: No rashes Const: Vital Signs, click to edit/add: Vital Signs - 24 hr 04/24/25 04:28 Temperature 97.0 F L Pulse Rate [Right Pulse Oximeter] 86 Respiratory Rate 18 Blood Pressure [Ri ght Upper Arm] 133/85 Pulse Oximetry 98 Oxygen Delivery Me thod Room Air Course Course ED Course: Reviewed prior emergency department visit from August 2023 patient seen with acute diarrhea, negative evaluation at that time. Patient presents today with right upper quadrant abdominal pain, also vomiting. She is anxious appearing, tearful, hyperventilating. Right upper quadrant tenderness, otherwise finally stable and no other abdominal tenderness. Suspect biliary colic or acute cholecystitis, cannot exclude intrathoracic process including to pulmonary embolism although clinically this is less likely. Labs are ordered along with John Trejo and will continue to monitor Reevaluation(s) Time of Reevaluation #1: 05:02 Reevaluation #1: Patient recheck, appears more comfortable. Labs independently interpreted by me with normal CBC, mild hypokalemia with potassium 3.4 but otherwise normal basic panel, glucose 162, hepatic panel normal, lipase normal. D-dimer is negative. CT abdomen pelvis ordered. Time of Reevaluation #2: 05:46 Reevaluation #2: CT abdomen and pelvis and panel interpreted by me with distended gallbladder but no gallstones, no pericholecystic fluid, no other acute findings. Radiology addition pending, right upper quadrant ultrasound ordered. Time of Reevaluation #3: 06:45 Reevaluation #3: Right upper quadrant ultrasound independently interpreted by me with no evidence for stones, no pericholecystic fluid, no ductal dilatation. Suspect patient passed stone although no further debris, sludge, or stones in the gallbladder. Patient is stable for discharge, discussed diet for biliary colic and follow-up with general surgery. Vital Signs Vital signs: Initial Vital Signs Temperature 97.0 F L 04/24/25 04:28 Temperature Source Temporal Artery Scan 04/24/25 04:28 Pulse Rate 86 04/24/25 04:28 Pulse Rhythm Regular 04/24/25 04:28 Pulse Strength 3+ Normal 04/24/25 04:28 Respiratory Rate 18 04/24/25 04:28 Blood Pressure 133/85 04/24/25 04:28 Blood Pressure Mean 101 04/24/25 04:28 Blood Pressure Position Supine 04/24/25 04:28 Pulse Oximetry 98 04/24/25 04:28 Oxygen Delivery Method Room Air 04/24/25 04:28 Vital Signs Temperature 97.0 F L 04/24/25 04:28 Pulse Rate 86 04/24/25 04:28 Respiratory Rate 18 04/24/25 04:28 Blood Pressure 133/85 04/24/25 04:28 Pulse Oximetry 98 04/24/25 04:28 Oxygen Delivery Method Room Air 04/24/25 04:28 Temperature 97.0 F L 04/24/25 04:28 Pulse Rate 86 04/24/25 04:28 Respiratory Rate 18 04/24/25 04:28 Blood Pressure 133/85 04/24/25 04:28 Pulse Oximetry 98 04/24/25 04:28 Oxygen Delivery Method Room Air 04/24/25 04:28 Medications Administered Medications: Discontinued Medications Generic Name Dose Route Start Last Admin Trade Name Freq PRN Reason Stop Dose Admin Hydromorphone HCl 0.5 mg 04/24/25 04:28 04/24/25 04:38 Hydromorphone 0.5 Mg/0.5 Ml Inj IVP 04/24/25 04:29 0.5 mg ONCE ONE Administration Ondansetron HCl 4 mg 04/24/25 04:28 04/24/25 04:39 Ondansetron 2 Mg/Ml Inj IVP 04/24/25 04:29 4 mg ONCE ONE Administration Medical Decision Making Lab Data Labs: Lab Results 04/24/25 Range/Units 04:30 WBC 10.10 (4.50-11.00) K/uL RBC 4.15 (4.00-5.20) m/uL Hgb 11.5 L (12.0-16.0) gm/dL Hct 35.1 (33.0-51.0) % MCV 85 (80-100) fL MCH 28 (26-34) pg MCHC 33 (32-36) gm/dL RDW Coeff of Horacio 12.9 (11.5-15.5) % Plt Count 342 (140-440) K/uL Neut % (Auto) 48.9 (42.0-72.0) % Lymph % (Auto) 41.3 (20-44) % Smyth % (Auto) 7.0 (0.0-11.0) % Eos % (Auto) 2.3 (0.0-7.0) % Baso % (Auto) 0.4 (0.0-3.0) % Neut # (Auto) 4.94 (1.7-7.0) K/uL Lymph # (Auto) 4.17 H (0.90-2.90) K/uL Smyth # (Auto) 0.70 (0.00-0.90) K/UL Eos # (Auto) 0.23 (0.00-0.50) K/uL Baso # (Auto) 0.04 (0.00-0.30) K/uL Abs Immat Gran (auto) 0.01 (0.00-0.30) K/uL Imm/Tot Granulo (auto) 0.1 % D-Dimer Quant (PE/DVT) < 0.27 (0.00-0.50) ug/ml Sodium 139 (135-149) mmol/L Potassium 3.4 L (3.6-5.1) mmol/L Chloride 102 (96-114) mmol/L Carbon Dioxide 26 (20-32) mmol/L Anion Gap 11 (7-15) mEq/L BUN 21 (5-24) mg/dL Creatinine 0.7 (0.5-1.5) mg/dL Estimated Creat Clear 107.01 Estimated GFR 117 ml/min Glucose 162 H (60-115) mg/dL Calcium 8.9 (8.4-10.6) mg/dL Magnesium 1.8 (1.5-2.6) mg/dL Total Bilirubin 0.3 (0.1-1.5) mg/dL Direct Bilirubin 0.2 (0.0-0.5) mg/dL AST 25 (12-35) U/L ALT 19 (4-35) U/L Alkaline Phosphatase 90 (40-150) U/L Total Protein 7.4 (6.0-8.3) g/dL Albumin 4.4 (3.3-5.0) g/dL Lipase 69 (23-300) U/L HCG, Qual Negative (Negative) Discharge Plan Discharge Clinical Impression: Abdominal pain, RUQ, Biliary colic Patient Disposition: Home, Self-Care Condition: Stable Instructions: Biliary Colic (ED) Additional Instructions: Liquid diet for 24 hours Low-fat diet, avoid or decreased use of oils and fats Call general surgery clinic for follow-up [phone] Activity Level: Activity as Tolerated Discharge Diet: Low Fat/Low Cholesterol Prescriptions: No Action escitalopram oxalate 10 mg tablet 10 mg PO QAM albuterol sulfate 90 mcg/actuation HFA aerosol inhaler 2 puff inhalation 6XD PRN (Reason: shortness of breath or wheezing) Qty: 6.7 0RF Follow Up/Referrals: Provider,Not a Local [Non-Staff, Family Practice] Stand Alone Forms: MyHealth Info Instructions
[2025-04-24 04:28] VITALS: BP 133/85; PULSE 86; RESP 18; TEMP 36.1; O2SAT 98; BMI 29.1
[2025-04-24 04:39] LABS: Hematocrit* 35.1 % (33.0-51.0); Hemoglobin* 11.5 gm/dL (12.0-16.0); Immature Granulocytes Abs Auto 0.01 K/uL (0.00-0.30); Immature Granulocytes Pct Auto 0.1 %; Lymphocytes Absolute Auto 4.17 K/uL (0.90-2.90); Mean Corpuscular HGB Conc 33 gm/dL (32-36); Mean Corpuscular Hemoglobin 28 pg (26-34); Mean Corpuscular Volume 85 fL (80-100); RDW Coefficient of Variation % 12.9 % (11.5-15.5); Red Blood Count* 4.15 m/uL (4.00-5.20); White Blood Count* 10.10 K/uL (4.50-11.00)
[2025-04-24] MEDS: ONDANSETRON 2 MG/ML inj 4 MG IVP (04:39)
[2025-04-24 04:41] LABS: Slide Review Reflex No
[2025-04-24 04:51] LABS: Albumin* 4.4 g/dL (3.3-5.0); Chloride* 102 mmol/L (96-114); Potassium* 3.4 mmol/L (3.6-5.1); Sodium* 139 mmol/L (135-149)
[2025-04-24 04:53] LABS: Blood Urea Nitrogen* 21 mg/dL (5-24); Creatinine* 0.7 mg/dL (0.5-1.5); Est. Creatinine Clearance* 107.01; Estimated Glomerular Filt Rate 117 ml/min
[2025-04-24 04:54] LABS: Alanine Aminotransferase* 19 U/L (4-35); Alkaline Phosphatase* 90 U/L (40-150); Anion Gap 11 mEq/L (7-15); Aspartate Amino Transferase* 25 U/L (12-35); Bilirubin Direct* 0.2 mg/dL (0.0-0.5); Bilirubin Total* 0.3 mg/dL (0.1-1.5); Calcium* 8.9 mg/dL (8.4-10.6); Carbon Dioxide* 26 mmol/L (20-32); Glucose* 162 mg/dL (60-115); Total Protein* 7.4 g/dL (6.0-8.3)
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
--- OUTSIDE RECORDS SUMMARY | 2025-04-24 04:56 | XMS_ITS | Clinical Summary ---
Author Organization [employer] & [facility] Address [address] [place] [address] Care Team Providers Care Charm Filter Operator Helper Name Role Phone None Unavailable Unavailable Gabrielle Diallo DO Primary Care Provider [phone] Allergies Active Allergy Reactions Criticality Noted Date Comments Dog Dander Anaphylaxis High 06/18/2024 Shellfish Containing Products *Unknown 2015 Medications EPINEPHrine (EPIPEN) 0.3 mg/0.3 mL auto-injector Inject 0.3 mg intramuscular each time if needed. 05/23/20 24 Active albuterol HFA (PRO-AIR; VENTOLIN; PROVENTIL) 90 mcg/actuation inhalerIndication s:Wheezing,Exacer bation of asthma, unspecified asthma severity, unspecified whether persistent (HC) Inhale 1-2 Puffs by mouth every 4 hours if needed for Shortness Of Breath or Wheezing. 18 g 3 06/23/19 25 Active metFORMIN 500 mg Extended-Release tabletIndications :Prediabetes,Obes ity (BMI 30.0-34.9) Take 1 Tablet (500 mg) by mouth two times daily with meals. Take one tablet by mouth daily with food for one week, then increase to one tablet by mouth twice a day with food. 180 Tablet 3 11/13/19 25 Active escitalopram oxalate (LEXAPRO) 20 mg tabletIndications :Anxiety Take 1 Tablet (20 mg) by mouth once daily in the morning. 90 Tablet 3 02/28/20 25 Active dextroamphetamine -amphetamine (Adderall XR) 20 mg Extended-Release capsuleIndication s:ADHD (attention deficit hyperactivity disorder), combined type Take 1 Capsule (20 mg) by mouth once daily. 30 Capsule 03/29/20 25 025 Active dextroamphetamine -amphetamine (Adderall XR) 20 mg Extended-Release capsuleIndication s:ADHD (attention deficit hyperactivity disorder), combined type Take 1 Capsule (20 mg) by mouth once daily. 30 Capsule 04/28/20 25 Active dextroamphetamine -amphetamine (Adderall XR) 20 mg Extended-Release capsuleIndication s:ADHD (attention deficit hyperactivity disorder), combined type Take 1 Capsule (20 mg) by mouth once daily. 30 Capsule 02/28/20 25 025 Active Problems Problem Noted Date Diagnosed Date Cervical cancer screening 03/05/2025 Overview (03/05/2025): 02/2025 NIL/HPV negative Plan: HPV based testing due 02/2030 Anxiety 10/23/2024 ADHD (attention deficit hype ractivity disorder), combined type 10/23/2024 Class 1 obesity with body ma ss index (BMI) of 33.0 to 33.9 in adult 07/17/2024 Iron deficiency anemia 06/09/2012 Allergic rhinitis 12/12/2011 Primary dysmenorrhea 08/18/2011 Encounters Date Type Department Care Team Description 02/27/2025 12:45 PM CDT Office Visit [facility] [address] [place] [address] Gabrielle Diallo, DO Medication Management (Adderall refill and dosage); Vaginal Problem (Patient states for about a month she has had discharge and itchiness. Patient is trying for a baby.) 02/27/2025 Travel 02/17/2025 Telephone [facility] [address] [place] [address] Gabrielle Diallo, Refill Request (AMPHETAMINE/DEXTRO) from Last 3 Months Immunizations Immunization Administration Dates Next Due DTP 10/05/1997,05/19/1992,03/18/1992 ,01/15/1992 DTaP-HIB (TriHIBIT) 1995 HPV 9 (Gardasil 9) 02/27/2025 Hepatitis B (Peds) 04/23/2007,02/16/2004, 996 Hepatitis B, Unspecified 02/16/2004,1995 INFLUENZA, IIV3 PF (AGE >= 6 MO) 02/27/2025 Influenza, IIV3 (Age >=3 years) 02/28/2012 MMR 10/05/1997,1995 Polio Virus, Unspecified 05/19/1992,03/18/1992,0 01/15/1992,1991 Td (Age >=7 Years) 09/14/2003 Tdap 02/27/2025,06/07/2012 Varicella Vaccine 02/16/2004 Family History Medical History Relation Name Comments Other Sister prediabetes Relation Name Status Comments Sister Social History Tobacco Use Types Packs/Day Years Used Date Smoking Tobacco: Former Cigarettes Smokeless Tobacco: Never Tobacco Cessation:Counseling Given: Yes Alcohol Use Standard Drinks/Week Comments No 0 (1 standard drink = 0.6 oz pur e alcohol) PHQ-2 Answer Date Recorded PHQ-2 TOTAL SCORE 0 02/27/2025 Social Connections Answer Date Recorded Do you often feel lonely or isolated from those around you? 0 02/27/2025 Alcohol Use Answer Date Recorded How often do you have a drink containing alcohol ? 0 02/27/2025 How many drinks containing a lcohol do you have on a typical day when you are drinking? 0 02/27/2025 How often do you have five or more drinks on one occasion? 0 02/27/2025 Financial Resource Strain Answer Date R ecorded Difficulty of Paying Living Expenses 3 02/27/2025 Difficulty of Paying Living Expenses Not on file 02/27/2025 Food Insecurity Answer Date Recorded Do you worry your food will run out before you are able to buy more? 1 02/27/2025 Transportation Needs Answer Date Record ed Does lack of transportation keep you from medica l appointments? 1 02/27/2025 Does lack of transportation keep you from work, meetings or getting things that you need? 1 02/27/2025 Housing Stability Answer Date Recorded What is your housing situation today? 1 02/27/2025 Utilities Answer Date Recorded Do you have trouble paying f or utilities (for example, heat, electricity, water, phone)? 1 02/27/2025 Comments No Sex and Gender Information Value Date Recorded Sex Assigned at Not on file Legal Sex Female 5:27 AM FIELD COUNSEL Gender Identity Not on file Sexual Orientation Not on file Obstetrics History Para Term AB IAB SAB Ectopic Multiple Livin g Live Births 6 2 2 4 3 1 2 2 Date Outcome GA Total Labor Labor/2nd/3rd Weight Sex Type Anes PTL Glo A1 A5 Name Clin 2007 SAB SPONTA NEOUS 2008 Term 39w 6d 3.37 kg (7 lb 7 oz) F CS-LTr anv Epidur al N Livin g 8 9 Akker man Delivery Location:[facility] Comments:LTCS document ed, chorio, active phase arrest at 4 cm 2011 Term 39w 1d 3.09 kg (6 lb 13 oz) M CS-LTr anv Spinal Livin g 9 9 MOREN O,B1 AGUSTO TE Matthew Delivery Location:[facility] 2013 Ectopic ECTOPI C 2019 SAB SPONTA NEOUS 2021 SAB SPONTA NEOUS Comments 2014 - [place], laparosco py, did not need to remove the tube Last Filed Vital Signs Vital Sign Reading Time Taken Comments Blood Pressure 104/74 02/27/2025 12:48 PM CDT Pulse 80 02/27/2025 12:48 PM CDT Temperature 36.8 C (98.3 F) 05/17/2022 9:45 AM FIELD COUNSEL Respiratory Rate 22 11/06/2021 7:41 PM CDT Oxygen Saturation 94% 02/27/2025 12:48 PM CDT Inhaled Oxygen Concentration - - Weight 84.5 kg (186 lb 3.2 oz) 02/27/2025 12:48 PM CDT Height 154.9 cm (5' 1) 12/28/2023 12:36 PM CDT Body Mass Index 35.18 12/28/2023 12:36 PM CDT Plan of Treatment Health Maintenance Due Date Last Done Comments BMI (ht and wt on same day) for age 18+ 12/27/2024 12/28/2023, 03/14/2022, 11/13/2015, Additional history exists HPV series for age 9-45 (2 - 3-dose SCDM series) 03/27/2025 02/27/2025 Depression screening for age 12+ 02/27/2026 02/27/2025, 11/12/2024, 10/23/2024, Additional history exists Pap test for age 21-65 02/27/2030 , 02/27/2025, 08/24/2021, Additional history exists Tetanus booster 02/27/2035 02/27/2025, 05/19, 09/14/2003 RSV vaccine for adults or (1 - 1-dose 75+ series) 11/13/2066 Hepatitis B series for 19+ Completed 04/23, 02/16/2004, 02/16/2004, Additional history exists HIV for age 15-65 Completed 08/24/2021 Hepatitis C screening for age 18-79 Completed 08/24/2021 Influenza Vaccine Completed 02/27/2025, 02/28/2012 Pneumococcal series for age 6-49 Aged Out No longer eligible based on patient's age to complete this topic Procedures Procedure Name Priority Date/Time Associated Diagnosis Comments URINE POCT Routine 02/27/2025 1:14 PM CDT Missed period OPERATIONS MANAGER ASSISTANT THIN PREP PAP SCREEN IMAGED Routine 02/27/2025 1:00 PM CDT Screening for cervical cancer HPV HIGH RISK Routine 02/27/2025 1:00 PM CDT Screening for cervical cancer TRICHOMONAS, RAHEEM, AND BACTERIAL VAGINOSIS BY PING Routine 02/27/2025 1:00 PM CDT Vaginal itching ANTI HIV 1/2 Routine 08/24/2021 2:52 PM FIELD COUNSEL ANTI HCV Routine 08/24/2021 2:52 PM FIELD COUNSEL from Last 3 Months or Most Recently Relevant to Health Maintenance Results * POCT Urine (02/27/2025 1:14 PM CDT) POC HCG URINE NEGATIVE NEGATIVE 02/27/2025 1:18 PM CDT [facility] Urine URINE SPECIMEN / Unknown Non-Blood / Unknown 02/27/2025 1:14 PM CDT 02/27/2025 1:14 PM CDT us Gabrielle Diallo DO URINE Final Resu lt [facility] [address] [place] [address], [place] [phone] [facility] [address] [place] [address], [place] [phone] * (ABNORMAL) TRICHOMONAS, RAHEEM, AND BACTERIAL VAGINOSIS BY PING (02/27/2025 1:00 PM CDT) RAHEEM SPECIES Negative Negative 12:37 PM CDT [facility] RAHEEM GLABRATA Negative Negative 02/28/2025 12:37 PM CDT [facility] TRICHOMONAS VVA Negative Negative 12:37 PM CDT [facility] BACTERIAL VAGINOSIS Positive(A) Negative 02/28/2025 12:37 PM CDT [facility] Other VAGINAL SWAB / Unknown Non-Blood / Unknown 02/27/2025 1:00 PM CDT 02/27/2025 1:44 PM CDT Gabrielle Diallo DO MICROBIOLOGY Final Resu lt [facility] [address] [place] [id number], * OPERATIONS MANAGER ASSISTANT THIN PREP PAP SCREEN IMAGED [[id number]] (02/27/2025 1:00 PM CDT) Case Report Gynecologic Cytology Report Case: [id number] Authorizing Provider: Gabrielle Diallo DO Collected: 02/27/2025 1300 Ordering Location: [facility] Received: 02/27/2025 1344 Clinic First Screen: Oli Ontiveros Specimen: OPERATIONS MANAGER ASSISTANT ThinPrep Vial Screening, Cervical 03/05/2025 1:47 PM CDT [facility] INTERPRETATION/ RESULT NEGATIVE FOR INTRAEPITHELIAL LESION OR MALIGNANCY (NIL) (none) 03/05/2025 1:47 PM CDT [facility] at 1347 CDT SPECIMEN ADEQUACY Satisfactory for evaluation No endocervical component seen 03/05/2025 1:47 PM CDT [facility] HPV REQUEST HPV and PAP 03/05/2025 1:47 PM CDT [facility] Date of LMP 01/17/2025 03/05/2025 1:47 PM CDT [facility] Last Pap Date 08/24/2021 03/05/2025 1:47 PM CDT [facility] Last Pap Result NIL 1:47 PM CDT [facility] Abnormal Pap or [place] Bx in last 5 years No 03/05/2025 1:47 PM CDT [facility] Menstrual Status Regular Periods 03/05/2025 1:47 PM CDT [facility] [place] Bx Done Today No 03/05/2025 1:47 PM CDT [facility] Additional Information None given 03/05/2025 1:47 PM CDT [facility] Comment: Cytology is screened at [facility] - [address], [place] [address] and [facility] - [address], [place] [address] and [facility] - [address] [place] [address] [place] [address] Interpreted at [facility] - [address] [place] [id number] Automated Review Successful 03/05/2025 1:47 PM CDT [facility] Comment:Specimen processed s uccessfully by automated traffic control operator device, ThinPrep Imaging System, [employer] ANCILLARY TESTING OPERATIONS MANAGER ASSISTANT HPV Ordered, Please see separate report 03/05/2025 1:47 PM CDT [facility] Note The pap test is a screening technique, not a diagnostic procedure. It is used primarily to screen for squamous cancers and precursor lesions. Published studies have shown that it is subject to both false negative and false positive results. The pap test should not be used as the sole means to diagnose or exclude pre-malignant and malignant lesions. 03/05/2025 1:47 PM CDT [facility] Other (Cervical) Non-Blood / Unknown 02/27/2025 1:00 PM CDT 02/27/2025 1:44 PM CDT Gabrielle Diallo DO PATHOLOGY/CYTOLOGY Final R esult Performing Organization Address [facility] Co de Phone Number [facility] [address] [place] [address], * HPV HIGH RISK (02/27/2025 1:00 PM CDT) TYPE 16 Negative Negative 03/03/2025 5:12 PM CDT [facility] TYPE 18 Negative Negative 03/03/2025 5:12 PM CDT [facility] OTHER HIGH RISK TYPES Negative Negative 03/03/2025 5:12 PM CDT [facility] Other (Cervical) Non-Blood / Unknown 02/27/2025 1:00 PM CDT 03/02/2025 10:45 AM CDT Narrative [facility] - 03/03/2025 5:12 PM CDT HPV types 16, 18, 31, 33, 35, 39, 45, 51, 52, 56, 58, 59, 66 and 68 DNA were undetectable or below the pre-set threshold. Methodology: Tom Ej 4800 HPV Test Gabrielle Diallo DO MICROBIOLOGY Final Resu lt Performing Organization Address [facility] de Phone Number [facility] [address] [place] [address], * ANTI HCV (08/24/2021 2:52 PM FIELD COUNSEL) HEPATITIS C ANTIBODY Non-React amairani Non-React amairani 08/25/2021 9:04 PM FIELD COUNSEL [facility] Comment:Antibodies to HCV no t detected; does not exclude the possibility of exposure to HCV. Blood BLOOD SPECIMEN / Unknown 08/24/2021 2:52 PM FIELD COUNSEL 08/25/2021 10:04 AM FIELD COUNSEL Lina Reyes SKYLIGHTS ASSEMBLER SEND OUTS Final Result [facility] [address] [place] [address], [place] * ANTI HIV 1/2 (08/24/2021 2:52 PM FIELD COUNSEL) HIV-1/HIV-2 ANTIBODY Non-Reacti ve Non-Reacti ve 08/25/2021 8:59 PM FIELD COUNSEL [facility] Comment:HIV-1 p24 and HIV-1/ HIV-2 Ab not detected. Blood BLOOD SPECIMEN / Unknown 08/24/2021 2:52 PM FIELD COUNSEL 08/25/2021 10:05 AM FIELD COUNSEL Lina Reyes SKYLIGHTS ASSEMBLER SEND OUTS Final Result [facility] [address] [place] [address], from Last 3 Months or Most Recently Relevant to Health Maintenance Care Teams Charm Filter Operator Helper Relationship Specialty Start Date End Date Gabrielle Diallo DO [address] [place] [address] PCP - General Family Practice 12/17/23 None . 11/06/21
[2025-04-24 05:00] LABS: D Dimer Quantitative* < 0.27 ug/ml (0.00-0.50)
--- NOTE | 2025-04-24 05:02 | CRLHL7_ITS ---
For Patients: As a result of the Century Cures Act, medical imaging exams and procedure reports are released immediately into your electronic medical record. You may view this report before your referring provider. If you have questions, please contact your health care provider. INDICATION: Upper abdominal pain. TECHNIQUE: CT abdomen and pelvis acquired with 89 cc Isovue 370 IV contrast. COMPARISON: None. FINDINGS: Lower chest: Unremarkable Liver: Unremarkable Gallbladder and bile ducts: Unremarkable Pancreas: Unremarkable Spleen: Splenule. Adrenal glands: Unremarkable Kidneys: No stones. No hydronephrosis. GI tract: Unremarkable. Normal appendix. Vasculature: Abdominal aorta is normal in caliber. Lymph nodes: No lymphadenopathy. Peritoneum/Abdominal Wall: Unremarkable Pelvis: Pelvic calcifications likely reflective of vascular phleboliths. Bones: No acute osseous abnormality. IMPRESSION: No acute abdominal or pelvic pathology. Please note that all CT scans at this facility use dose modulation, iterative reconstruction, and/or weight-based dosing when appropriate to reduce radiation dose to as low as reasonably achievable. Dictated by Aleksandr Castillo MD @ 04/24/2025 6:17:34 AM (Electronically Signed)
[2025-04-24 05:10] LABS: HCG Qualitative Serum* Negative (Negative)
--- NOTE | 2025-04-24 05:47 | CRLHL7_ITS ---
For Patients: As a result of the Century Cures Act, medical imaging exams and procedure reports are released immediately into your electronic medical record. You may view this report before your referring provider. If you have questions, please contact your health care provider. INDICATION: Right upper quadrant abdomen pain. TECHNIQUE: Ultrasound abdomen limited. Sonographic images of the right upper quadrant were obtained using larsen-scale and color Doppler images. COMPARISON: Same day CT abdomen pelvis.. FINDINGS: Gallbladder: No stones or sludge. Normal wall thickness. No pericholecystic fluid. Negative sonographic Haley`s sign. Common bile duct: 4 millimeters. IMPRESSION: No sonographic evidence of acute cholecystitis. Dictated by Aleksandr Castillo MD @ 04/24/2025 6:59:52 AM (Electronically Signed)
== END 2025-04-24 06:56 | disposition home or self-care (01) ==
PROVIDERS: Emergency Provider Family Medicine; PCP Family Medicine
DX: R10.11 Right upper quadrant pain (principal); K80.20 Calculus of gallbladder without cholecystitis without obstruction
CPT/HCPCS: 36415; 74177; 76705; 80048; 80076; 83690; 83735; 84703; 85025; 85379; 96374; 96375; 99285; J1171; J2405; Q9967

== ENCOUNTER 2025-04-26 22:12 | Inpatient (IN) | payer OTHER, SELFPAY ==
--- NOTE | 2025-04-26 22:14 | ED.GENADULT ---
HPI - General Adult General Date Seen: 04/26/25 Chief complaint: Abdominal Pain Stated complaint: gallbladder Time Seen by Provider: 04/26/25 22:14 History of Present Illness HPI narrative: 34-year-old female presenting to the ER today with concern for gallbladder attack and right upper quadrant in the pain. She was seen here in the ER 2 nights ago for right upper quadrant pain with 2 episodes of vomiting. She was afebrile. She was hemodynamically stable. Workup in the ER showed a white count of 10.1, hemoglobin 11.5, platelet count of 342. D-dimer was low. Electrolytes were normal. BUN was 21. Creatinine was 0.7. Potassium was slightly low at 3.4. LFTs were normal with a total bilirubin of 0.3, AST 25, ALT of 19, lipase was normal at 69. test was negative. Gallbladder ultrasound was negative. It showed ?no stones or sludge. Normal wall thickness. No pericholecystic fluid. Negative sonographic Haley sign... Common bile duct 4 mm. ? CT abdomen/pelvis showed, Impression: No acute abdominal or pelvic pathology.... Gallbladder and bile ducts: Unremarkable She was discharged home with a prescription for pain killers and given instructions for outpatient follow-up with General some surgery for outpatient consultation and consideration for cholecystectomy. She also has a past medical history of asthma, 2 previous C-sections. Since discharge from the ER 2 nights ago she had a little bit of pain yesterday and took some the pain meds. Tonight, less than 1/2 hour prior to arrival she had recurrent onset of pain that is severe in her right upper quadrant and radiating up into her chest and toward her right shoulder. She is writhing in pain and not able to answer most questions but her family who is with her does provide additional history. She has not vomited. No definite fever. Bowel movements normal. No rash. No known injury. Related Data Home Medications ?Medication ?Instructions ?Recorded ?Confirmed escitalopram oxalate 10 mg tablet 10 mg PO QAM 01/18/24 01/21/24 Previous Rx's ?Medication ?Instructions ?Recorded albuterol sulfate 90 mcg/actuation 2 puff inhalation 6XD PRN 02/27/23 aerosol inhaler shortness of breath or wheezing #6.7 grams Allergies Allergy/AdvReac Type Severity Reaction Status Date / Time shrimp Allergy Severe Anaphylaxis Verified 04/24/25 04:31 [facility] Social History Smoking Status: Never smoker Do you use any of these nicotine containing products: None Second hand tobacco smoke exposure: No How often do you have a drink containing alcohol: never How often do you have six or more drinks on one occasion: Never AUDIT-C Alcohol total score: 0 Non-prescribed substance use: denies use service: No Exam Narrative: Exam Narrative: Constitutional: Appears well-developed and well-nourished. Alert. She looks good very uncomfortable in she is moaning and writhing in pain. History limited because of pain. HENT: Head: Atraumatic. Nose: Nose normal. Mouth/Throat: Oral mucosa is clear and moist. no trismus. No trismus. Tongue and mucous membranes normal. Eyes: Conjunctivae normal. EOM normal. Pupils equal, round, and reactive to light. No scleral icterus. Neck: Normal range of motion. Neck supple. No tracheal deviation present. Cardiovascular: Normal rate, regular rhythm. No gallop. No friction rub. No murmur heard. Symmetric radial artery pulses Pulmonary/Chest: Effort normal. No stridor. No respiratory distress. No wheezes. No rales. No rhonchi . No ribcage tenderness. Abdominal: Soft. Bowel sounds normal. No distension. No mass. Marked right upper quadrant and epigastric tenderness. No rebound. No guarding. No CVA tenderness. No left-sided tenderness or pelvic tenderness. Musculoskeletal: RUE: Normal range of motion. No tenderness. No deformity LUE: Normal range of motion. No tenderness. No deformity RLE: Normal range of motion. No edema. No tenderness. No deformity LLE: Normal range of motion. No edema. No tenderness. No deformity Neurological: Alert and oriented to person, place, and time. Normal strength. CN II-VII intact. No sensory deficit. GCS eye subscore is 4. GCS verbal subscore is 5. GCS motor subscore is 6. Normal coordination Skin: Skin is warm and dry. No rash noted. No pallor. Normal capillary refill. Psychiatric: Normal mood. Normal affect. Const: Vital Signs, click to edit/add: Vital Signs - 24 hr 04/26/25 22:32 04/27/25 00:19 04/27/25 01:10 Temperature 98.0 F 97.8 F Pulse Rate [Pulse Oximeter] 96 74 68 Respiratory Rate 30 H 16 16 Blood Pressure [Ri ght Upper Arm] 126/102 H 118/68 95/58 L Pulse Oximetry 98 98 98 Oxygen Delivery Me thod Room Air Room Air Room Air Course Course ED Course: Patient presenting with severe right upper quadrant abdominal pain epigastric pain. Symptoms clinically seem suggestive of biliary colic. However she had a visit to the ER 2 nights ago and during that visit had a normal gallbladder ultrasound that any stones or sludge, normal common bile duct. She also had a CT scan of her abdomen pelvis that did not show any pericholecystic fluid or clear signs of cholecystitis. Therefore broad differential is considered. We will get CT angiogram of her chest and pelvis to make sure there is not an acute vascular emergency such as an aortic dissection or dissection involving the celiac trunk. Also consider atypical presentation of kidney stone, pyelonephritis, perforated gastric ulcer, for other prefer viscus. Less likely would be chest pathologies such as right lung PE, pneumothorax. Lung sounds clear. Pain seems to highly abdomen be suggestive for ovarian torsion pelvic pathology. Laboratory workup shows new leukocytosis which was not present 2 nights ago. LFTs and lipase are still normal. Kidney function normal. Urinalysis shows no sign of infection. CT scan came back showing normal vasculature. No dissection. Normal right upper quadrant liver, gallbladder on CT. There is an enlarging right ovarian cyst at 5.1 cm. No definite free fluid or signs of rupture on CT. test was -2 days ago. Will obtain pelvic ultrasound look for possible torsion. Reevaluation(s) Reevaluation #1: Recheck-preliminary report about her pelvic ultrasound from wire technician is that the patient does have a simple right ovarian cyst but no evidence for torsion. Formal radiologist interpretation still pending Recheck-discussed with General surgery, Dr. Collins. She feels the patient probably needs further workup and a HIDA scan before proceeding to cholecystectomy but would agree with getting the patient admitted for pain control overnight and surgical consultation in morning. Unfortunately, would not be able to have HIDA scan here in [place] until Sunday Reevaluation #2: Discussed with Kevin chowdary hospitalist who agrees to admit to the hospital service for pain control with plan for surgical consultation in the morning. Vital Signs Vital signs: Initial Vital Signs Temperature 98.0 F 04/26/25 22:32 Temperature Source Temporal Artery Scan 04/26/25 22:32 Pulse Rate 96 04/26/25 22:32 Respiratory Rate 30 H 04/26/25 22:32 Blood Pressure 126/102 H 04/26/25 22:32 Blood Pressure Mean 110 H 04/26/25 22:32 Blood Pressure Position Supine 04/26/25 22:32 Pulse Oximetry 98 04/26/25 22:32 Oxygen Delivery Method Room Air 04/26/25 22:32 Vital Signs Temperature 98.0 F 04/26/25 22:32 Pulse Rate 96 04/26/25 22:32 Respiratory Rate 30 H 04/26/25 22:32 Blood Pressure 126/102 H 04/26/25 22:32 Pulse Oximetry 98 04/26/25 22:32 Oxygen Delivery Method Room Air 04/26/25 22:32 Temperature 97.8 F 04/27/25 01:10 Pulse Rate 68 04/27/25 01:10 Respiratory Rate 16 04/27/25 01:10 Blood Pressure 95/58 L 04/27/25 01:10 Pulse Oximetry 98 04/27/25 01:10 Oxygen Delivery Method Room Air 04/27/25 01:10 Medications Administered Medications: Generic Name Dose Route Start Last Admin Trade Name Freq PRN Reason Stop Dose Admin Fentanyl 50 mcg 04/26/25 22:40 04/26/25 22:41 Fentanyl 100 Mcg/2 Ml Inj IVP 04/26/25 22:41 50 mcg ONCE ONE Administration Hydromorphone HCl 0.5 mg 04/26/25 22:16 04/26/25 22:30 Hydromorphone 0.5 Mg/0.5 Ml Inj IVP 0.5 mg Q1H PRN Administration Pain Sodium Chloride 1,000 mls @ 1,000 mls/hr 04/26/25 22:30 04/27/25 00:20 0.9 % Sodium Chloride 1000 Ml IV 04/26/25 23:29 Infused .Q1H YOLY Infusion Ketorolac Tromethamine 15 mg 04/26/25 22:16 04/26/25 22:31 Ketorolac 15 Mg/Ml Inj IVP 04/26/25 22:17 15 mg ONCE ONE Administration Ondansetron HCl 4 mg 04/26/25 22:16 04/26/25 22:31 Ondansetron 2 Mg/Ml Inj IVP 04/26/25 22:17 4 mg ONCE ONE Administration Pantoprazole Sodium 40 mg 04/26/25 22:16 04/26/25 22:31 Pantoprazole Sodium 40 Mg Inj IVP 04/26/25 22:17 40 mg ONCE ONE Administration Medical Decision Making Lab Data Labs: Lab Results 04/26/25 04/26/25 Range/Units 22:22 23:20 WBC 14.29 H (4.50-11.00) K/uL RBC 4.24 (4.00-5.20) m/uL Hgb 11.7 L (12.0-16.0) gm/dL Hct 36.0 (33.0-51.0) % MCV 85 (80-100) fL MCH 28 (26-34) pg MCHC 33 (32-36) gm/dL RDW Coeff of Horacio 12.8 (11.5-15.5) % Plt Count 363 (140-440) K/uL Neut % (Auto) 57.5 (42.0-72.0) % Lymph % (Auto) 34.4 (20-44) % [place] % (Auto) 5.6 (0.0-11.0) % Eos % (Auto) 1.5 (0.0-7.0) % Baso % (Auto) 0.2 (0.0-3.0) % Neut # (Auto) 8.20 H (1.7-7.0) K/uL Lymph # (Auto) 4.90 H (0.90-2.90) K/uL [place] # (Auto) 0.80 (0.00-0.90) K/UL Eos # (Auto) 0.20 (0.00-0.50) K/uL Baso # (Auto) 0.00 (0.00-0.30) K/uL Abs Immat Gran (auto) 0.10 (0.00-0.30) K/uL Imm/Tot Granulo (auto) 0.8 % Sodium 136 (135-149) mmol/L Potassium 4.1 (3.6-5.1) mmol/L Chloride 99 (96-114) mmol/L Carbon Dioxide 25 (20-32) mmol/L Anion Gap 12 (7-15) mEq/L BUN 18 (5-24) mg/dL Creatinine 0.6 (0.5-1.5) mg/dL Estimated Creat Clear 100.63 Estimated GFR 121 ml/min Glucose 107 (60-115) mg/dL Lactate 1.2 (0.5-1.9) mmol/L Calcium 9.0 (8.4-10.6) mg/dL Total Bilirubin 0.2 (0.1-1.5) mg/dL AST 35 (12-35) U/L ALT 21 (4-35) U/L Alkaline Phosphatase 86 (40-150) U/L Total Protein 7.8 (6.0-8.3) g/dL Albumin 4.6 (3.3-5.0) g/dL Lipase 106 (23-300) U/L Urine Color Yellow (Yellow) Urine Appearance Clear (Clear) Urine pH 7.0 (5.0-8.5) Ur Specific [place] 1.015 (1.000-1.030) Urine Protein Negative (Negative) Urine Glucose (UA) Negative (Negative) Urine Ketones Negative (Negative) Urine Blood 1+ A (Negative) Urine Nitrite Negative (Negative) Urine Bilirubin Negative (Negative) Urine Urobilinogen 0.2 (0.2-1.0) Ur Leukocyte Esterase Negative (Negative) Urine RBC 0-2 (0-2) Urine WBC 0-2 (0-5) Ur Squamous Epith Cells Moderate A (None-Few) Urine Bacteria Few A (None) Imaging Data CT Chest/Ab/Pelvis: Attestation: I have reviewed the pertinent imaging results. Radiologist's impression: IMPRESSION: 1. No aortic dissection, aneurysm or acute intramural hematoma. 2. 5.1 cm right adnexal cystic lesion, increased in size since the prior exam. Likely a simple or hemorrhagic cyst. Consider pelvic ultrasound for further evaluation. 3. 1 cm right lower lobe pulmonary nodule. Recommend follow-up CT in 3 months to evaluate for interval change. Discharge Plan Discharge Clinical Impression: Abdominal pain, RUQ, Ovarian cyst Patient Disposition: Admitted As Observation
--- OUTSIDE RECORDS SUMMARY | 2025-04-26 22:15 | XMS_ITS | Clinical Summary ---
Author Organization [facility] Address [address] [place] [id number] Care Team Providers Care Soaker Name Role Phone None Unavailable Unavailable Gabrielle Diallo DO Primary Care Provider [phone] Allergies Active Allergy Reactions Criticality Noted Date [...] Description 02/27/2025 12:45 PM CDT Office Visit [facility] [address] [place] [address] Gabrielle Diallo, DO Medication Management (Adderall refill and dosage); Vaginal Problem (Patient states for about a month she has had discharge and itchiness. Patient is trying for a baby.) 02/27/2025 Travel 02/17/2025 Telephone [facility] [address] [place] [address] Gabrielle Diallo, Refill Request (AMPHETAMINE/DEXTRO) from Last [...] on file Legal Sex Female 5:27 AM DIE MAINTENANCE TECHNICIAN Gender Identity Not on file Sexual Orientation [...] Livin g 8 9 Akker man Delivery Location:[facility] Comments:LTCS document ed, chorio, active phase arrest at 4 cm 2011 Term 39w 1d 3.09 kg (6 lb 13 oz) M CS-LTr anv Spinal Livin g 9 9 MOREN O,B1 AGUSTO TE Matthew Delivery Location:[facility] 2013 Ectopic ECTOPI C 2019 SAB SPONTA NEOUS 2021 SAB SPONTA NEOUS Comments 2014 - Virgil, laparosco py, did not need to remove the tube Last Filed Vital Signs Vital Sign Reading Time Taken Comments Blood Pressure 104/74 02/27/2025 12:48 PM CDT Pulse 80 02/27/2025 12:48 PM CDT Temperature 36.8 C (98.3 F) 05/17/2022 9:45 AM DIE MAINTENANCE TECHNICIAN Respiratory Rate 22 11/06/2021 7:41 PM CDT [...] Routine 02/27/2025 1:14 PM CDT Missed period SALES INTERN THIN PREP PAP SCREEN IMAGED Routine 02/27/2025 1:00 PM CDT Screening for cervical cancer HPV HIGH RISK Routine 02/27/2025 1:00 PM CDT Screening for cervical cancer TRICHOMONAS, RAHEEM, AND BACTERIAL VAGINOSIS BY PING Routine 02/27/2025 1:00 PM CDT Vaginal itching ANTI HIV 1/2 Routine 08/24/2021 2:52 PM DIE MAINTENANCE TECHNICIAN ANTI HCV Routine 08/24/2021 2:52 PM DIE MAINTENANCE TECHNICIAN from Last 3 Months or Most Recently Relevant to Health Maintenance Results * POCT Urine (02/27/2025 1:14 PM CDT) POC HCG URINE NEGATIVE NEGATIVE 02/27/2025 1:18 PM CDT [facility] Urine URINE SPECIMEN / Unknown Non-Blood / Unknown 02/27/2025 1:14 PM CDT 02/27/2025 1:14 PM CDT us Gabrielle Diallo DO URINE Final Resu lt [facility] [address] [place] [address], [place] [phone] [facility] [address] [place] [address], [place] [phone] * (ABNORMAL) TRICHOMONAS, RAHEEM, AND BACTERIAL VAGINOSIS BY PING (02/27/2025 1:00 PM CDT) RAHEEM SPECIES Negative Negative 12:37 PM CDT [facility] RAHEEM GLABRATA Negative Negative 02/28/2025 12:37 PM CDT [facility] TRICHOMONAS VVA Negative Negative 12:37 PM CDT [facility] BACTERIAL VAGINOSIS Positive(A) Negative 02/28/2025 12:37 PM CDT [facility] Other VAGINAL SWAB / Unknown Non-Blood / Unknown 02/27/2025 1:00 PM CDT 02/27/2025 1:44 PM CDT Gabrielle Diallo DO MICROBIOLOGY Final Resu lt [facility] [address] [place] [id number], * SALES INTERN THIN PREP PAP SCREEN IMAGED [[id number]] (02/27/2025 1:00 PM CDT) Case Report Gynecologic Cytology Report Case: [id number] Authorizing Provider: Gabrielle Diallo DO Collected: 02/27/2025 1300 Ordering Location: [facility] Received: 02/27/2025 1344 Clinic First Screen: Oli Ontiveros Specimen: SALES INTERN ThinPrep Vial Screening, Cervical 03/05/2025 1:47 PM CDT [facility] INTERPRETATION/ RESULT NEGATIVE FOR INTRAEPITHELIAL LESION OR MALIGNANCY (NIL) (none) 03/05/2025 1:47 PM CDT [facility] at 1347 CDT SPECIMEN ADEQUACY Satisfactory for evaluation No endocervical component seen 03/05/2025 1:47 PM CDT [facility] HPV REQUEST HPV and PAP 03/05/2025 1:47 PM CDT [facility] Date of LMP 01/17/2025 03/05/2025 1:47 PM CDT [facility] Last Pap Date 08/24/2021 03/05/2025 1:47 PM CDT [facility] Last Pap Result NIL 1:47 PM CDT [facility] Abnormal Pap or [place] Bx in last 5 years No 03/05/2025 1:47 PM CDT [facility] Menstrual Status Regular Periods 03/05/2025 1:47 PM CDT [facility] [place] Bx Done Today No 03/05/2025 1:47 PM CDT [facility] Additional Information None given 03/05/2025 1:47 PM CDT [facility] Comment: Cytology is screened at [facility] Central Laboratory - [address], [place] [address] and [facility] - [address], [place] [address] and Laboratory - [address] [place] [address] [place] [address] Interpreted at [facility] - [address] [place] [address] Automated Review Successful 03/05/2025 1:47 PM CDT [facility] Comment:Specimen processed s uccessfully by automated robotic technician device, ThinPrep Imaging System, [email or web address] ANCILLARY TESTING SALES INTERN HPV Ordered, Please see separate report 03/05/2025 1:47 PM CDT [facility] Note The pap test is a [...] PATHOLOGY/CYTOLOGY Final R esult Performing Organization Address [facility] Co de Phone Number [facility] [address] [place] [address], * HPV HIGH RISK (02/27/2025 1:00 PM CDT) TYPE 16 Negative Negative 03/03/2025 5:12 PM CDT [facility] TYPE 18 Negative Negative 03/03/2025 5:12 PM CDT [facility] OTHER HIGH RISK TYPES Negative Negative 03/03/2025 5:12 PM CDT [facility] Other (Cervical) Non-Blood / Unknown 02/27/2025 1:00 PM CDT 03/02/2025 10:45 AM CDT Narrative [facility] - 03/03/2025 5:12 PM CDT HPV types 16, 18, 31, 33, 35, 39, 45, 51, 52, 56, 58, 59, 66 and 68 DNA were undetectable or below the pre-set threshold. Methodology: Tom Ej 4800 HPV Test Gabrielle Diallo DO MICROBIOLOGY Final Resu lt Performing Organization Address [facility] de Phone Number [facility] [address] [place] [address], * ANTI HCV (08/24/2021 2:52 PM DIE MAINTENANCE TECHNICIAN) HEPATITIS C ANTIBODY Non-React amairani Non-React amairani 08/25/2021 9:04 PM DIE MAINTENANCE TECHNICIAN [facility] Comment:Antibodies to HCV no t detected; does not exclude the possibility of exposure to HCV. Blood BLOOD SPECIMEN / Unknown 08/24/2021 2:52 PM DIE MAINTENANCE TECHNICIAN 08/25/2021 10:04 AM DIE MAINTENANCE TECHNICIAN Lina Reyes CURRICULUM MANAGER SEND OUTS Final Result [facility] [address] [place] [address], [place] * ANTI HIV 1/2 (08/24/2021 2:52 PM DIE MAINTENANCE TECHNICIAN) HIV-1/HIV-2 ANTIBODY Non-Reacti ve Non-Reacti ve 08/25/2021 8:59 PM DIE MAINTENANCE TECHNICIAN [facility] Comment:HIV-1 p24 and HIV-1/ HIV-2 Ab not detected. Blood BLOOD SPECIMEN / Unknown 08/24/2021 2:52 PM DIE MAINTENANCE TECHNICIAN 08/25/2021 10:05 AM DIE MAINTENANCE TECHNICIAN Lina Reyes CURRICULUM MANAGER SEND OUTS Final Result [facility] [address] [place] [address], from Last 3 Months or Most Recently Relevant to Health Maintenance Care Teams Soaker Relationship Specialty Start Date End Date Gabrielle Diallo DO [address] [place] [address] PCP - General Family Practice 12/17/23 None . 11/06/21
--- OUTSIDE RECORDS SUMMARY | 2025-04-26 22:15 | XMS_ITS | Clinical Summary ---
Author Organization [place] Address [address] [place] [address] Care Team Providers Care Director Medical Economics Name Role Phone No Ref-Primary, Physician Primary [...] on file Legal Sex Female 4:52 AM COMMUNITY ARTIST Gender Identity Not on file Sexual Orientation Not on file Last Filed Vital Signs Vital Sign Reading Time Taken Comments Blood Pressure 123/74 06/18/2024 11:45 PM COMMUNITY ARTIST Pulse 93 06/18/2024 11:45 PM COMMUNITY ARTIST Temperature 36.4 C (97.6 F) 06/18/2024 10:10 PM COMMUNITY ARTIST Respiratory Rate 20 06/18/2024 10:00 PM COMMUNITY ARTIST Oxygen Saturation 95% 06/18/2024 11:45 PM COMMUNITY ARTIST Inhaled Oxygen Concentration - - Weight 77.1 kg (170 lb) 06/18/2024 10:10 PM COMMUNITY ARTIST Height 154.9 cm (5' 1) 06/18/2024 10:10 PM COMMUNITY ARTIST Body Mass Index 32.12 06/18/2024 10:10 PM COMMUNITY ARTIST Plan of Treatment Health Maintenance Due Date [...] age to complete this topic Care Teams Director Medical Economics Relationship Specialty Start Date End Date No Ref-Primary, Physician PCP - General 04/30/17
[2025-04-26 22:29] LABS: Lactate* 1.2 mmol/L (0.5-1.9)
[2025-04-26] MEDS: PANTOPRAZOLE SODIUM 40 MG INJ IVP (22:31)
[2025-04-26] MEDS: ONDANSETRON 2 MG/ML inj 4 MG IVP (22:31)
[2025-04-26 22:32] VITALS: BP 126/102; PULSE 96; RESP 30; TEMP 36.7; O2SAT 98; BMI 32.1
[2025-04-26 22:33] LABS: Hematocrit* 36.0 % (33.0-51.0); Hemoglobin* 11.7 gm/dL (12.0-16.0); Immature Granulocytes Abs Auto 0.10 K/uL (0.00-0.30); Immature Granulocytes Pct Auto 0.8 %; Lymphocytes Absolute Auto 4.90 K/uL (0.90-2.90); Mean Corpuscular HGB Conc 33 gm/dL (32-36); Mean Corpuscular Hemoglobin 28 pg (26-34); Mean Corpuscular Volume 85 fL (80-100); RDW Coefficient of Variation % 12.8 % (11.5-15.5); Red Blood Count* 4.24 m/uL (4.00-5.20); Slide Review Reflex No; White Blood Count* 14.29 K/uL (4.50-11.00)
--- NOTE | 2025-04-26 22:38 | CRLHL7_ITS ---
For Patients: As a result of the Century Cures Act, medical imaging exams and procedure reports are released immediately into your electronic medical record. You may view this report before your referring provider. If you have questions, please contact your health care provider. INDICATION: RT UPPER QUAD PAIN, RT SHOULDER PAIN. TECHNIQUE: CT chest without contrast and CT chest, abdomen and pelvis acquired with 95 cc of Isovue 370 IV contrast, dissection protocol. COMPARISON: CT abdomen and pelvis 04/24/2025. FINDINGS: CHEST: Cardiovascular structures: The unenhanced images demonstrate no evidence of aortic intramural thrombus. Thoracic aorta is normal in caliber without evidence of dissection. Heart size is normal. Mediastinum and hattie: No mass or adenopathy. Lungs and pleura: 1 cm nodule within the right lower lobe (5/35). No pleural effusion or pneumothorax. Chest wall and axilla: No mass or adenopathy. Bones: Unremarkable for age. ABDOMEN AND PELVIS: Liver: Unremarkable. Gallbladder and bile ducts: Unremarkable. Pancreas: Unremarkable. Spleen: Unremarkable. Adrenal glands: Unremarkable. Kidneys: Unremarkable. GI tract: Unremarkable. Vascular structures: Abdominal aorta is normal in caliber without evidence of dissection. Mesenteric arteries are patent. Lymph nodes: Unremarkable. Miscellaneous: Unremarkable. No free air or significant free fluid. Pelvic Organs: 5.1 cm right adnexal cystic lesion, increased in size since the prior exam. The uterus is unremarkable. Bones: Unremarkable for age. IMPRESSION: 1. No aortic dissection, aneurysm or acute intramural hematoma. 2. 5.1 cm right adnexal cystic lesion, increased in size since the prior exam. Likely a simple or hemorrhagic cyst. Consider pelvic ultrasound for further evaluation. 3. 1 cm right lower lobe pulmonary nodule. Recommend follow-up CT in 3 months to evaluate for interval change. Please note that all CT scans at this facility use dose modulation, iterative reconstruction, and/or weight-based dosing when appropriate to reduce radiation dose to as low as reasonably achievable. Dictated by Michael Blanton MD @ 04/26/2025 11:23:10 PM (Electronically Signed)
[2025-04-26 22:44] LABS: Albumin* 4.6 g/dL (3.3-5.0); Chloride* 99 mmol/L (96-114)
[2025-04-26 22:45] LABS: Potassium* 4.1 mmol/L (3.6-5.1); Sodium* 136 mmol/L (135-149)
[2025-04-26 22:47] LABS: Alanine Aminotransferase* 21 U/L (4-35); Aspartate Amino Transferase* 35 U/L (12-35); Blood Urea Nitrogen* 18 mg/dL (5-24); Carbon Dioxide* 25 mmol/L (20-32); Creatinine* 0.6 mg/dL (0.5-1.5); Est. Creatinine Clearance* 100.63; Estimated Glomerular Filt Rate 121 ml/min
[2025-04-26 22:48] LABS: Alkaline Phosphatase* 86 U/L (40-150); Anion Gap 12 mEq/L (7-15); Bilirubin Total* 0.2 mg/dL (0.1-1.5); Calcium* 9.0 mg/dL (8.4-10.6); Glucose* 107 mg/dL (60-115); Total Protein* 7.8 g/dL (6.0-8.3)
[2025-04-26 23:31] LABS: Appearance Urine Clear (Clear)
[2025-04-27] VITALS (9 sets, daily range): BP systolic 91–118; BP diastolic 49–73; PULSE 55–74; RESP 16–18; TEMP 36.4–36.7; O2SAT 96–98
--- NOTE | 2025-04-27 | CRLHL7_ITS ---
For Patients: As a result of the Century Cures Act, medical imaging exams and procedure reports are released immediately into your electronic medical record. You may view this report before your referring provider. If you have questions, please contact your health care provider. INDICATION: Right-sided abdominal pain. TECHNIQUE: Ultrasound pelvis transvaginal for better assessment or to better visualize the endometrium. Real-time sonographic images with spectral and color Doppler imaging of the ovaries were obtained. COMPARISON: CTA chest, abdomen, and pelvis 04/26/2025. FINDINGS: Uterus: 10.1 x 5.5 x 4.1 cm. Normal echotexture of the myometrium. No masses. Endometrium: Endometrial thickness measures 14 mm. Small amount of fluid in the lower endometrial canal. Ovaries: Right ovary measures 6.6 x 5.5 x 1.8 cm and left ovary measures 2.3 x 1.9 x 3.8 cm. Two adjacent simple cysts or septated cyst in the right ovary, with the cyst complex measuring 4.7 x 3.7 x 2 cm. Normal arterial and venous blood flow is demonstrated in both ovaries. Cul-de-sac: Small amount of free fluid. IMPRESSION: 1. Two adjacent simple cysts or septated cyst in the right ovary. 2. No evidence of ovarian torsion. 3. Small amount of fluid in the lower endometrial canal. Dictated by Arpit Tran MD @ 04/27/2025 1:45:36 AM (Electronically Signed)
--- NOTE | 2025-04-27 01:30 | W.PM.THH&P_ITS ---
Telehealth- H&P: HPI History of Present Illness Date Seen: 04/27/25 Chief complaint: gallbladder Narrative: Amy Steiner is seen as an Interactive Telehealth visit. Amy Steiner is a 34 year old female with PMH of recurrent RUQ abdominal pain prompting multiple ED visits over the past 2 years as well as depression who presented with severe RUQ pain. Prior to this, the patient was seen in the ED on 04/24/2025 for abdominal pain, the workup at that time, including imaging for GB was negative and she was discharged home on opiates with presumptive diagnosis of biliary colic/GB dysfunction. She was advised to avoid eating fatty food which she had been compliant with. She was also advised to follow-up outpatient with general surgery for considering a HIDA scan. Today, after consuming grilled chicken for her meal, she noted abrupt onset of RUQ pain which was not managed by her meds at home. She presented to ED. Workup in ED: WBC 14.2, Hgb 11.7, platelet 363 NA 136, K 4.1, creatinine 0.6, lactate 1.2, normal LFTs CT CAP: Liver and gallbladder unremarkable 5.1 cm ovarian cyst 1 cm RLL pulmonary nodule, recommendation for CT follow-up in 3 months. GB ultrasound from 04/24/2025 did not show cholelithiasis or acute cholecystitis Case was discussed with general surgery who recommended admission for pain management. Patient was given ketorolac and Dilaudid in ED with some pain improvement patient was followed by fentanyl. Pain now better managed. Patient admitted to [facility] Review of Systems Const: Denies: fever, chills or night sweats Cardio: Denies: chest pain or shortness of breath with exertion Resp: Denies: shortness of breath GI: Reports: abdominal pain, nausea and heartburn; Denies: vomiting, coffee grounds in vomit or diarrhea : Denies: urinary frequency Musculo: Denies: back pain PFSH PFSH Social History Smoking Status: Never smoker Do you use any of these nicotine containing products: None Second hand tobacco smoke exposure: No How often do you have a drink containing alcohol: never How often do you have six or more drinks on one occasion: Never AUDIT-C Alcohol total score: 0 Non-prescribed substance use: denies use service: No Meds Home Medications and Allergies Home Medications ?Medication ?Instructions ?Recorded ?Confirmed ?Type albuterol sulfate 90 mcg/actuation 2 puff inhalation 6 XD PRN 02/27/23 01/21/24 Rx aerosol inhaler shortness of breath or wheez ing #6.7 grams escitalopram oxalate 10 mg tablet 10 mg PO QAM 4 01/21/24 History Allergies Allergy/AdvReac Type Severity Reaction Status Date / Time shrimp Allergy Severe Anaphylaxis Verified 04/24/25 04:31 Exam Narrative Exam Narrative: Physical Exam GENERAL: ?vital signs reviewed, ill appearing, not in distress HEENT: pupils are equal round and reactive to light, extraocular movements are grossly within normal limits and oral mucosa is moist. NECK: Supple without lymphadenopathy or thyromegaly according to nursing staff examination observation HEART: Regular rate and rhythm without any rubs, murmurs, or gallops. LUNGS: Clear to auscultation bilaterally with good air movement throughout ABDOMEN: Observation from nurse assisted exam, abdomen appears soft, nontender, and nondistended with Positive bowel sounds noted. EXTREMITIES: Strength and sensation is observed to be grossly within normal limits in the upper and lower extremities.? No focal strength deficit is observed. SKIN:? Observed warm and dry with color normal Const Vital Signs, click to edit/add: Vital Signs - 24 hr 04/26/25 22:32 04/27/25 00:19 04/27/25 01:10 Temperature 98.0 F 97.8 F Pulse Rate [Pulse Oximeter] 96 74 68 Respiratory Rate 30 H 16 16 Blood Pressure [Right Upper Arm] 126/102 H 118/68 95/58 L Pulse Oximetry 98 98 98 Oxygen Delivery Method Room Air Room Air Room Air Hospitalist - H&P: Result Labs Labs: Short CBC 04/26/25 Range/Units 22:22 WBC 14.29 H (4.50-11.00) K/uL Hgb 11.7 L (12.0-16.0) gm/dL Hct 36.0 (33.0-51.0) % Plt Count 363 (140-440) K/uL BMP 04/26/25 22:22 Sodium 136 Potassium 4.1 Chloride 99 Carbon Dioxide 25 BUN 18 Creatinine 0.6 Glucose 107 Calcium 9.0 Liver Function 04/26/25 Range/Units 22:22 Total Bilirubin 0.2 (0.1-1.5) mg/dL AST 35 (12-35) U/L ALT 21 (4-35) U/L Alkaline Phosphatase 86 (40-150) U/L Albumin 4.6 (3.3-5.0) g/dL Urine 04/26/25 Range/Units 23:20 Urine Color Yellow (Yellow) Urine Appearance Clear (Clear) Urine pH 7.0 (5.0-8.5) Ur Specific [place] 1.015 (1.000-1.030) Urine Protein Negative (Negative) Urine Glucose (UA) Negative (Negative) Assessment and Plan Assessment and plan (1) Abdominal pain, RUQ: Status: Acute Assessment and Plan: Unclear etiology, suspected biliary colic. Workup including CTAP as well as GB ultrasound are negative. General surgery had planned outpatient HIDA scan. Admit to [facility] Pain management: IV narcotics as well as IV Toradol. Zofran as needed for nausea/vomiting Case was discussed with general surgery, recommendation for HIDA scan as inpatient or outpatient depending on symptom improvement HIDA can be earliest achieved as inpatient on 04/28/2025. Continue IV fluids Cardiac diet Trend CBC, currently WBC of 14 seems consistent with reactive Leucocytosis (2) Biliary colic: Status: Acute Assessment and Plan: RUQ pain in the absence of biliary or GB pathology seems consistent with biliary colic Pain management PO PPI (3) Pulmonary nodule: Problem comment: CT chest: 1 cm nodule within the right lower lobe (5/35). Needs f/up CT in 3 months. Status: Acute Telehealth: Statement Statement Telehealth Visit: Today's History and Physical is provided via interactive telehealth by Chao Johnson MD.? Patient is located at [facility].? Provider is located at [place].? Nursing staff assisted with the patient's exam. The visit being done today meets criteria for a telehealth visit and the patient or patient?s parent/guardian is aware the visit is a telehealth visit. Camera Start Time: 02:00 Camera End Time: 02:14
[2025-04-27] MEDS: SODIUM CHLORIDE 0.9 % (FLUSH) 10 ML SYRINGE 5 ML IVF ×3 (03:39→20:48)
[2025-04-27] MEDS: ONDANSETRON 2 MG/ML inj 4 MG IVP ×2 (03:39→18:43)
[2025-04-27] MEDS: OMEPRAZOLE 20 MG CAPSULE DR 40 MG PO (06:26)
[2025-04-27] MEDS: ACETAMINOPHEN 325 MG TABLET PO (06:26)
--- NOTE | 2025-04-27 07:00 | PC.NURSE ---
Pt arrived to the floor at 0150. Pt pleasant, alert, oriented and vitally stable. Pain rated 7/10 upon arrival, prn Toradol given and pt stated improvement. Pt states pain in RUQ, radiating to midline and epigastric areas.?Tender upon palpation.?Bowel?sounds active.?Pt?stated?nausea, prn Zofran given.?Pt independent. Pt?utilizes?call light?appropriately. Pt in bed, appears to be resting call light within reach.???
--- NOTE | 2025-04-27 09:07 | PM.GSCN ---
History of Present Illness Consult details Date Seen: 04/27/25 Consult date: 04/27/25 Narrative: The patient is a 34-year-old female who presented to the emergency department overnight with severe upper abdominal pain, worse on the right, radiating to right chest and shoulder. She states that she began having abdominal symptoms back in 2019. She states started with severe heartburn and bloating as well as vomiting and diarrhea. She did see a provider in [place] recommended aloe vera that she had been drinking that in is helped. She states that she had symptoms approximately every 3 months and then they went away until about 2021. They recurred for a short time and then stopped. Last Sunday she had similar symptoms but it was much worse. She states that she woke up around 3:00 a.m. with severe nausea and heartburn. Previously she has taken Tums, however Tums did not help her symptoms. She states that she vomited stomach contents and foam. She came into the emergency department. CT scan and ultrasound of the abdomen were negative. Labs were all normal. Her pain went away after she received pain medication. She was discharged home. She then was doing okay and then around 9:00 p.m. she had similar symptoms. She states that she had eaten dinner and had mashed potatoes and chicken, nothing particularly heavy but she again began having severe heartburn, nausea and right-sided pain. The pain was so severe that she could not breathe. She states that she has had similar symptoms for many years, she feels as though there is something stuck and she points to her lower chest. She has had ?digestive issues for approximately 5 years and has bowel movements every 3 days. She describes them is very small, like pellets. She does not take an acid blocking medication regularly. [facility] Medical History (Updated 04/27/25 @ 11:25 by Tracie Collins MD) GERD (gastroesophageal reflux disease) ?K21.9 - Gastro-esophageal reflux disease without esophagitis (ICD-10) , ectopic ?O00.90 - Unspecified ectopic without intrauterine (ICD-10) Anxiety ?F41.9 - Anxiety disorder, unspecified (ICD-10) ADHD ?F90.9 - Attention-deficit hyperactivity disorder, unspecified type (ICD-10) Surgical History (Updated 04/27/25 @ 11:25 by Tracie Collins MD) S/P section ?Z98.891 - History of uterine scar from previous surgery (ICD-10) Social History Narrative: She does not smoke. She does not drink alcohol. 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 What is your current living situation?: I presently have a place to live Problems where you live: no known problems In the past 12 months, utilities in danger of being shut off: no In past 12 months, lack of transportation kept you from medical appts, meetings, work, or getting things needed for daily living: no In the past 12 mos, have been you worried that your food would run out before you had money to buy more?: never true In the past 12 mos, the food you bought just didn't last and you didn't have money to buy more?: never true Highest level of school completed/degree received: 12th grade, no diploma Smoking Status: Never smoker Do you use any of these nicotine containing products: None Second hand tobacco smoke exposure: No How often do you have a drink containing alcohol: never How often do you have six or more drinks on one occasion: Never AUDIT-C Alcohol total score: 0 Non-prescribed substance use: denies use How often does anyone, including family, friends and others, physically hurt you: never How often does anyone, including family, friends and others, insult or talk down to you: never How often does anyone, including family, friends and others, threaten you with harm: never How often does anyone, including family, friends and others, scream or curse at you: never service: No Meds Home Medications and Allergies Home Medications ?Medication ?Instructions ?Recorded ?Confirmed ?Type albuterol sulfate 90 mcg/actuation 2 puff inhalation Q4H PRN 04/27/25 04/27/25 History aerosol inhaler shortness of breath or wheezing dextroamphetamine-amphetamine ER 1 cap PO DAILY 04/27/25 04/27/25 History 20 mg 24hr capsule,extend release escitalopram oxalate 20 mg tablet 20 mg PO QAM 04/27/25 04/27/25 History Allergies Allergy/AdvReac Type Severity Reaction Status Date / Time shrimp Allergy Severe Anaphylaxis Verified 04/24/25 04:31 Exam Narrative: Exam Narrative: General appearance: Alert, cooperative, and in no distress Eyes: PERRLA, eye lids clear, and sclera white HENT Head: Normocephalic Ears: External ears normal Pulmonary: Breathing nonlabored on room air Cardiovascular Heart: Regular rate Extremities: warm and well perfused Gastrointestinal Abdominal: No scars. No hernias. Tattoos noted on the lateral and inferior abdomen. On Exam she is diffusely tender, however more tender in the right upper quadrant. Musculoskeletal: Extremities: Upper: Both upper extremities have normal joint range of motion and intact strength. Lower: Both lower extremities have normal joint range of motion and intact strength. Skin: Normal skin color, texture, and turgor. Neurologic: No focal deficits Psychiatric: Alert, oriented, cooperative, normal affect. Const: Vital Signs, click to edit/add: Vital Signs - 24 hr 04/26/25 22:32 04/27/25 00:19 04/27/25 01:10 Temperature 98.0 F 97.8 F Pulse Rate Pulse Rate [Pulse Oximeter] 96 74 68 Respiratory Rate 30 H 16 16 Blood Pressure [Ri ght Arm] Blood Pressure [Ri ght Upper Arm] 126/102 H 118/68 95/58 L Pulse Oximetry 98 98 98 Oxygen Delivery Me thod Room Air Room Air Room Air 04/27/25 01:37 04/27/25 01:50 04/27/25 01:50 Temperature 97.9 F Pulse Rate 64 Pulse Rate [Pulse Oximeter] 62 Respiratory Rate 16 16 Blood Pressure [Ri ght Arm] 106/68 Blood Pressure [Ri ght Upper Arm] Pulse Oximetry 98 98 98 Oxygen Delivery Me thod Room Air Room Air 04/27/25 03:00 Temperature Pulse Rate Pulse Rate [Pulse Oximeter] Respiratory Rate 16 Blood Pressure [Ri ght Arm] Blood Pressure [Ri ght Upper Arm] Pulse Oximetry Oxygen Delivery Me thod Results Labs Labs: White blood cell count last evening was 14. On her ED visit on 04/24/2025, this was within normal limits. Transaminases and lipase within normal limits both on 04/24 and yesterday. Electrolytes within normal limits yesterday. HCG normal UA with a small amount of blood, however also positive white cells. Imaging Abdomen CT scan report/results: report reviewed and image reviewed Abdominal ultrasound report/results: report reviewed and image reviewed Additional studies: US pelvis 04/27/25: IMPRESSION: 1. Two adjacent simple cysts or septated cyst in the right ovary. 2. No evidence of ovarian torsion. 3. Small amount of fluid in the lower endometrial canal. Dictated by Arpit Tran MD @ 04/27/2025 1:45:[address] abdomen w/contrast 04/27/25: IMPRESSION: 1. No aortic dissection, aneurysm or acute intramural hematoma. 2. 5.1 cm right adnexal cystic lesion, increased in size since the prior exam. Likely a simple or hemorrhagic cyst. Consider pelvic ultrasound for further evaluation. 3. 1 cm right lower lobe pulmonary nodule. Recommend follow-up CT in 3 months to evaluate for interval change. Dictated by Michael Blanton MD @ 04/26/2025 11:23:[address] abdomen w/ contrast 04/24/25 IMPRESSION: No acute abdominal or pelvic pathology. Dictated by Aleksandr Castillo MD @ 04/24/2025 6:17:34 AM US abdomen 04/24/25: FINDINGS: Gallbladder: No stones or sludge. Normal wall thickness. No pericholecystic fluid. Negative sonographic Haley`s sign. Common bile duct: 4 millimeters. IMPRESSION: No sonographic evidence of acute cholecystitis. Dictated by Aelksandr Castillo MD @ 04/24/2025 6:59:52 AM Progress Note:A&P Assessment and plan (1) Abdominal pain, RUQ: Status: Acute (2) GERD (gastroesophageal reflux disease): Status: Acute (3) Constipation: Status: Acute Plan The patient is a 34-year-old female with acute abdominal pain of unclear etiology. She does seem to have chronic abdominal issues though her symptoms currently are acutely worse. Certainly with pain being centered in the right upper quadrant seems more consistent with biliary disease, however she does not have stones or sludge on ultrasound and there is no sign of gallbladder wall thickening on ultrasound from Sunday and from her CT scan last evening. Certainly we could repeat an ultrasound, however possibly more helpful would be a HIDA scan since she does not have stones on imaging. We cannot do this today however. Because of chronic GI issues, and her concerns that food is getting stuck in her lower chest, I would recommend obtaining an upper endoscopy as a 1st step. If this is completely normal then reasonable to either discharge her to undergo HIDA scan as an outpatient versus inpatient depending on her symptoms. If HIDA scan shows chronic or acute cholecystitis then I would recommend cholecystectomy. If HIDA scan is normal then she should follow-up with her primary care provider and possibly Gastroenterology going forward. -recommend EGD -HIDA scan as outpatient or inpatient depending on patient's symptoms -high-fiber diet on discharge for chronic constipation -recommend acid blocking medication for chronic GERD.
--- NOTE | 2025-04-27 11:27 | P.IMPN_ITS ---
Assessment and Plan Assessment and plan (1) Abdominal pain, RUQ: Problem comment: - ddx: gastritis/PUD, gallbladder disease, pancreatitis - EGD 04/27 - if nondiagnostic, will need HIDA scan - follow WBC, Gonorrhea pending Status: Acute (2) Pulmonary nodule: Problem comment: - CT chest: 1 cm nodule within the right lower lobe (5/35). Needs f/up CT in 3 months. Status: Acute Plan - per above - reviewed plan of care with Dr. Collins of General Surgery - mother and sister updated bedside, questions answered Subjective Date Seen: 04/27/25 Interval history: Amy was admitted to the hospital overnight for recurrent epigastric abdominal pain with radiation to the RUQ. Symptoms worse after eating and drinking, had been improved with a low fat diet but then recurred again over the weekend. Since admission: WBC 14, reassuring electrolytes and LFTs CT C/A/P: 1cm RLL pulmonary nodule (f/u in 3 months), ovarian cyst (of R ovary, no concerning features on pelvic ultrasound), unremarkable gallbladder and liver Abdominal ultrasound: negative for acute findings Urine gonorrhea and chlamydia: Pending Today, Amy continues to note epigastric and right upper quadrant pain. She is having an EGD today to further assess. She was seen by General surgery who agree with this plan. Recommend HIDA scan if nondiagnostic EGD. Blood pressure on the lower side, this is her baseline as confirmed per [facility] records. Exam Narrative: Exam Narrative: GEN: Alert and oriented, nontoxic HEENT: EOMIs bilaterally, no scleral icterus CV: RRR, No concerning murmurs R: LCTA bilaterally without concerning wheezing Ab: Soft, nondistended, + ttp over RUQ, no rebound or guarding Ext: wwp, no concerning edema Skin: No concerning skin lesions or rashes on exposed skin, no jaundice Neuro: Nonfocal Psych: Appropriate Const: Vital Signs, click to edit/add: Vital Signs - 24 hr 04/26/25 22:32 04/27/25 00:19 04/27/25 01:10 Temperature 98.0 F 97.8 F Pulse Rate Pulse Rate [Pulse Oximeter] 96 74 68 Respiratory Rate 30 H 16 16 Blood Pressure [Le ft Arm] Blood Pressure [Ri ght Arm] Blood Pressure [Ri ght Upper Arm] 126/102 H 118/68 95/58 L Pulse Oximetry 98 98 98 Oxygen Delivery Me thod Room Air Room Air Room Air 04/27/25 01:37 04/27/25 01:50 04/27/25 01:50 Temperature 97.9 F Pulse Rate 64 Pulse Rate [Pulse Oximeter] 62 Respiratory Rate 16 16 Blood Pressure [Le ft Arm] Blood Pressure [Ri ght Arm] 106/68 Blood Pressure [Ri ght Upper Arm] Pulse Oximetry 98 98 98 Oxygen Delivery Me thod Room Air Room Air 04/27/25 03:00 04/27/25 08:30 04/27/25 11:00 Temperature 97.9 F 97.7 F Pulse Rate Pulse Rate [Pulse Oximeter] 55 L 58 L Respiratory Rate 16 16 18 Blood Pressure [Le ft Arm] 91/49 L Blood Pressure [Ri ght Arm] 106/68 Blood Pressure [Ri ght Upper Arm] Pulse Oximetry 98 96 Oxygen Delivery Me thod Room Air Room Air Labs Labs: Laboratory Results - last 24 hr 04/26/25 04/26/25 22:22 23:20 WBC 14.29 H RBC 4.24 Hgb 11.7 L Hct 36.0 MCV 85 MCH 28 MCHC 33 RDW Coeff of Horacio 12.8 Plt Count 363 Neut % (Auto) 57.5 Lymph % (Auto) 34.4 [place] % (Auto) 5.6 Eos % (Auto) 1.5 Baso % (Auto) 0.2 Neut # (Auto) 8.20 H Lymph # (Auto) 4.90 H [place] # (Auto) 0.80 Eos # (Auto) 0.20 Baso # (Auto) 0.00 Abs Immat Gran (auto) 0.10 Imm/Tot Granulo (auto) 0.8 Sodium 136 Potassium 4.1 Chloride 99 Carbon Dioxide 25 Anion Gap 12 BUN 18 Creatinine 0.6 Estimated Creat Clear 100.63 Estimated GFR 121 Glucose 107 Lactate 1.2 Calcium 9.0 Total Bilirubin 0.2 AST 35 ALT 21 Alkaline Phosphatase 86 Total Protein 7.8 Albumin 4.6 Lipase 106 Urine Color Yellow Urine Appearance Clear Urine pH 7.0 Ur Specific [place] 1.015 Urine Protein Negative Urine Glucose (UA) Negative Urine Ketones Negative Urine Blood 1+ A Urine Nitrite Negative Urine Bilirubin Negative Urine Urobilinogen 0.2 Ur Leukocyte Esterase Negative Urine RBC 0-2 Urine WBC 0-2 Ur Squamous Epith Cells Moderate A Urine Bacteria Few A
--- NOTE | 2025-04-27 12:00 | W.ANESCHARGE ---
Anesthesia Charges Start Date/Time Anesthesia Start Date: 04/27/25 Anesthesia Start Time: 13:11 Stop Date/Time Anesthesia Stop Date: 04/27/25 Anesthesia Stop Time: 13:32 Coding CPT Codes CPT Codes: ANES UPR GI NDSC PX NOS - 99700 ([id number]) P2 - PATIENT W/MILD SYST DISEASE, QK - ACCOUNT ADJUSTER 2-4 CNCRNT ANES PROC, QX - INSURANCE CLAIMS ANALYST SVC W/ MD MED DIRECTION
--- NOTE | 2025-04-27 12:00 | P.ANES_ITS ---
Anesthesia Charges Start Date/Time Anesthesia Start Date: 04/27/25 Anesthesia Start Time: 13:11 Stop Date/Time Anesthesia Stop Date: 04/27/25 Anesthesia Stop Time: 13:32 Coding CPT Codes CPT Codes: ANES UPR GI NDSC PX NOS - 60096 ([id number]) P2 - PATIENT W/MILD SYST DISEASE, QK - TECHNOLOGY EDUCATION INSTRUCTOR 2-4 CNCRNT ANES PROC, QX - STEAM SERVICE INSPECTOR SVC W/ MD MED DIRECTION
[2025-04-27 12:21] LABS: Lab Add On Test New Spec Needed
--- NOTE | 2025-04-27 13:37 | P.ANES_ITS ---
Anesthesia Charges Start Date/Time Anesthesia Start Date: 04/27/25 Anesthesia Start Time: 13:11 Stop Date/Time Anesthesia Stop Date: 04/27/25 Anesthesia Stop Time: 13:32 Coding CPT Codes CPT Codes: ANES UPR GI NDSC PX NOS - 33516 ([id number]) P2 - PATIENT W/MILD SYST DISEASE, QK - GYROSCOPE REPAIRER 2-4 CNCRNT ANES PROC, QX - ASSISTANT WOMEN'S TENNIS COACH SVC W/ MD MED DIRECTION
--- NOTE | 2025-04-27 13:37 | W.ANESCHARGE ---
Anesthesia Charges Start Date/Time Anesthesia Start Date: 04/27/25 Anesthesia Start Time: 13:11 Stop Date/Time Anesthesia Stop Date: 04/27/25 Anesthesia Stop Time: 13:32 Coding CPT Codes CPT Codes: ANES UPR GI NDSC PX NOS - 18208 ([id number]) P2 - PATIENT W/MILD SYST DISEASE, QK - LBD TEACHER 2-4 CNCRNT ANES PROC, QX - BUTTONHOLE TACKER SVC W/ MD MED DIRECTION
[2025-04-27 13:55] LABS: Chlamydia DNA Amplified* NOT DETECTED (No Detected); GC DNA Amplified* NOT DETECTED (No Detected)
--- NOTE | 2025-04-27 19:08 | PC.NURSE ---
End of Shift: Patient pleasant and cooperative, A&O. VSS, afebrile. SpO2 maintained above 90% on RA. Patient reports RUQ pain this shift, managed with PRN medication, see MAR. Patient reports feeling nauseas after dinner, managed with PRN medication, see MAR. Independent in room. ?
[2025-04-27] MEDS: ENOXAPARIN 40 MG/0.4 ML INJ SUBCUT (20:47)
[2025-04-28 00:41] VITALS: BP 121/71; PULSE 72; RESP 16; TEMP 37; O2SAT 94
[2025-04-28 03:00] VITALS: RESP 14
[2025-04-28 05:30] VITALS: BP 111/75; PULSE 62; RESP 18; TEMP 36.5; O2SAT 98
[2025-04-28] MEDS: OMEPRAZOLE 20 MG CAPSULE DR 40 MG PO (05:44)
--- NOTE | 2025-04-28 05:59 | PC.NURSE ---
[id number]: Patient pleasant and cooperative. Independent in room. Afebrile. PRN medications and active ice for 4-6/10 abd pain. Appeared to rest well during noc.
[2025-04-28 07:00] LABS: Hematocrit* 32.4 % (33.0-51.0); Hemoglobin* 10.4 gm/dL (12.0-16.0); Immature Granulocytes Abs Auto 0.01 K/uL (0.00-0.30); Immature Granulocytes Pct Auto 0.1 %; Lymphocytes Absolute Auto 2.64 K/uL (0.90-2.90); Mean Corpuscular HGB Conc 32 gm/dL (32-36); Mean Corpuscular Hemoglobin 28 pg (26-34); Mean Corpuscular Volume 86 fL (80-100); RDW Coefficient of Variation % 13.0 % (11.5-15.5); Red Blood Count* 3.78 m/uL (4.00-5.20); White Blood Count* 8.44 K/uL (4.50-11.00)
[2025-04-28 07:01] LABS: Slide Review Reflex No
[2025-04-28 07:13] LABS: Albumin* 3.7 g/dL (3.3-5.0); Chloride* 102 mmol/L (96-114); Sodium* 132 mmol/L (135-149)
[2025-04-28 07:14] LABS: Potassium* 3.6 mmol/L (3.6-5.1)
[2025-04-28 07:16] LABS: Alanine Aminotransferase* 29 U/L (4-35); Alkaline Phosphatase* 74 U/L (40-150); Anion Gap 5 mEq/L (7-15); Aspartate Amino Transferase* 22 U/L (12-35); Bilirubin Total* 0.2 mg/dL (0.1-1.5); Blood Urea Nitrogen* 16 mg/dL (5-24); Carbon Dioxide* 25 mmol/L (20-32); Creatinine* 0.6 mg/dL (0.5-1.5); Est. Creatinine Clearance* 100.63; Estimated Glomerular Filt Rate 121 ml/min; Total Protein* 6.2 g/dL (6.0-8.3)
[2025-04-28 07:17] LABS: Calcium* 8.5 mg/dL (8.4-10.6); Glucose* 98 mg/dL (60-115)
[2025-04-28 07:35] VITALS: BP 111/70; PULSE 62; RESP 18; TEMP 36.6; O2SAT 97
[2025-04-28 07:45] VITALS: PULSE 62; RESP 18
[2025-04-28 11:30] VITALS: BP 114/75; PULSE 61; RESP 16; TEMP 37.1; O2SAT 98
[2025-04-28] MEDS: SODIUM CHLORIDE 0.9 % (FLUSH) 10 ML SYRINGE 5 ML IVF (11:30)
--- NOTE | 2025-04-28 12:00 | CRLHL7_ITS ---
For Patients: As a result of the Century Cures Act, medical imaging exams and procedure reports are released immediately into your electronic medical record. You may view this report before your referring provider. If you have questions, please contact your health care provider. Clinical History: Right upper quadrant pain Radionuclide Dose: 7.3 mCi 99m Tc Choletec; IV. 1.6 mcg Kinevac; IV infusion over 25 minutes. Comparison: None. Findings: There is normal radionuclide activity in the liver, common bile duct, gallbladder and small bowel. There is no evidence for cystic or common duct obstruction or intrinsic liver disease. Patient remained asymptomatic with Kinevac injection. The gallbladder ejection fraction measures 61%. Normal range for GB EF: Equal to or greater than 35%. Impression: 1. Normal hepatobiliary scan. 2. Gallbladder ejection fraction measures 61%. Dictated by Mack Crowe MD @ 04/28/2025 2:05:28 PM (Electronically Signed)
[2025-04-28] MEDS: ONDANSETRON 2 MG/ML inj 4 MG IVP (13:55)
--- NOTE | 2025-04-28 14:15 | P.DS_ITS ---
DS: Providers Provider Date Seen: 04/28/25 Date of admission: 04/27/25 02:16 Primary care physician: Gabrielle Diallo DO Admitting Clinician: Chao Johnson MD Attending Physician on discharge: Amarilys Larios MD Date of Discharge: 04/28/25 DS: Diagnosis Discharge Diagnosis (1) Abdominal pain, RUQ: Status: Acute Problem details: - ddx: gastritis/PUD, gallbladder disease, pancreatitis - EGD 04/27 reassuring - HIDA scan 04/28 reassuring - improved with low fat diet and requesting d/c home on 04/28 (2) Pulmonary nodule: Status: Acute Problem details: - CT chest: 1 cm nodule within the right lower lobe (). Needs f/up CT in 3 months. DS: Summary Hospital Course Hospital Course: Amy was admitted to the hospital overnight for recurrent epigastric abdominal pain with radiation to the RUQ. Symptoms worse after eating and drinking, had been improved with a low fat diet but then recurred again over the weekend. During stay: WBC 14 --> 8.4; rest of labs revealed reassuring electrolytes, lipase and LFTs CT C/A/P: incidentally noted 1cm RLL pulmonary nodule (f/u in 3 months - patient aware), ovarian cyst (of R ovary, no concerning features on pelvic ultrasound), unremarkable gallbladder and liver Abdominal ultrasound: negative for acute findings EGD: reassuring HIDA: reassuring Urine gonorrhea and chlamydia: Negative On hospital day 2 (04/28) improved with appropriate diet changes and requesting discharge home. Discharging on PPI with diet changes and close PCP f/u. Status at Discharge Functional status at discharge: independent ambulation Overall status at discharge: patient is progressing back to baseline Time Spent with Patient Time attestation: Total time spent providing and/or coordinating discharge services: Time spent: Less than 30 minutes Exam Narrative: Exam Narrative: GEN: Alert and oriented, nontoxic HEENT: EOMIs bilaterally, no scleral icterus CV: RRR, No concerning murmurs R: LCTA bilaterally Ab: Soft, nontender Ext: wwp, no concerning edema Skin: No concerning skin lesions or rashes on exposed skin Neuro: Nonfocal Psych: Appropriate Const: Vital Signs, click to edit/add: Vital Signs - 24 hr 04/27/25 15:00 04/27/25 15:00 04/27/25 20:40 Temperature 97.5 F L 98.1 F Pulse Rate [Pulse Oximeter] 56 L 56 L 72 Respiratory Rate 18 18 16 Blood Pressure [Le ft Arm] 97/54 L 118/73 Pulse Oximetry 98 97 Oxygen Delivery Me thod Room Air Room Air 04/28/25 00:41 04/28/25 03:00 04/28/25 05:30 Temperature 98.6 F 97.7 F Pulse Rate [Pulse Oximeter] 72 62 Respiratory Rate 16 14 18 Blood Pressure [Le ft Arm] 121/71 111/75 Pulse Oximetry 94 98 Oxygen Delivery Me thod Room Air Room Air 04/28/25 07:35 04/28/25 07:45 04/28/25 11:30 Temperature 97.9 F 98.7 F Pulse Rate [Pulse Oximeter] 62 62 61 Respiratory Rate 18 18 16 Blood Pressure [Le ft Arm] 111/70 114/75 Pulse Oximetry 97 98 Oxygen Delivery Me thod Room Air Room Air DS: Data Data Completed and Pending Labs on day of discharge: Labs from last 24 hours 04/28/25 06:55 WBC 8.44 RBC 3.78 L Hgb 10.4 L Hct 32.4 L MCV 86 MCH 28 MCHC 32 RDW Coeff of Horacio 13.0 Plt Count 286 Neut % (Auto) 58.9 Lymph % (Auto) 31.3 Sherman % (Auto) 7.2 Eos % (Auto) 2.3 Baso % (Auto) 0.2 Neut # (Auto) 4.97 Lymph # (Auto) 2.64 Sherman # (Auto) 0.60 Eos # (Auto) 0.19 Baso # (Auto) 0.02 Abs Immat Gran (auto) 0.01 Imm/Tot Granulo (auto) 0.1 Sodium 132 L Potassium 3.6 Chloride 102 Carbon Dioxide 25 Anion Gap 5 L BUN 16 Creatinine 0.6 Estimated Creat Clear 100.63 Estimated GFR 121 Glucose 98 Calcium 8.5 Total Bilirubin 0.2 AST 22 ALT 29 Alkaline Phosphatase 74 Total Protein 6.2 Albumin 3.7 Lipase 63 Discharge Plan Discharge Disposition: Home, Self-Care Date of Admission: 04/27/25 02:16 Attending Provider on Discharge: Amarilys Larios Primary Care Provider: Gabrielle Diallo Condition: Improved Anticipated Discharge Date/Time: 04/28/25 14:12 Discharge Medications: New omeprazole 20 mg capsule,delayed release(DR/EC) 20 mg PO BID Qty: 60 2RF oxycodone 5 mg tablet 5 mg PO Q8H PRN (Reason: pain) Qty: 10 0RF Rx Instructions: for severe pain Continued dextroamphetamine-amphetamine 20 mg capsule,extended release 24hr 1 cap PO DAILY escitalopram oxalate 20 mg tablet 20 mg PO QAM albuterol sulfate 90 mcg/actuation HFA aerosol inhaler 2 puff inhalation Q4H PRN (Reason: shortness of breath or wheezing) Discharge Orders: Discharge Order (Routine); Ordered 04/28/25 Ordered By: Amarilys Larios Additional Instructions: Your Gallbladder looks okay - I think most of this pain is related to mild gastritis. FOLLOW A BLAND DIET (white rice, low fat, low spice) until you see Dr. Diallo in followup. Activity Level: Activity as Tolerated Diet Detail: bland Follow Up Appointments: Gabrielle Diallo DO [Primary Care Provider, Family Practice] Referral Note: 5-7 days for hospital f/u and discussion of pulmonary nodule Forms: MyHealth Info Instructions
--- NOTE | 2025-04-28 16:31 | PC.NURSE ---
Discharge: Patient pleasant and cooperative, A&O. VSS, afebrile. SpO2 maintained above 90% on RA. Patient reports pain this shift, managed with PRN medication, see MAR. Patient reports nausea after her HIDA scan, managed with PRN medication, see MAR. IV removed with tip intact. Discharge instructions provided, all questions answered. Discharged to home.
== END 2025-04-28 15:50 | disposition home or self-care (01) | DRG 392 ==
LOC: ED 04-27 01:43 → MEDSURG 04-27 01:45
PROVIDERS: Family Medicine; Admitting Provider Internal Medicine; Emergency Provider Emergency Medicine; PCP Family Medicine; Visit Provider Internal Medicine
DX: R10.13 Epigastric pain (principal); R10.11 Right upper quadrant pain; K21.9 Gastro-esophageal reflux disease without esophagitis; K59.00 Constipation, unspecified; N83.291 Other ovarian cyst, right side; R91.1 Solitary pulmonary nodule; J45.909 Unspecified asthma, uncomplicated
CPT/HCPCS: 00731; 36415; 43239; 71275; 74174; 76830; 78227; 80053; 81001; 83605; 83690; 85025; 87086; 87491; 87591; 93976; 99284; 99285; A9270; A9537; J1171; J1650; J1885; J2405; J2470; J2704; J2805; J3010; J7030; Q9967